=== PATIENT | female | born 1980 | race Hispanic/Latino ===

== ENCOUNTER 2018-03-04 12:26 | Emergency (ER) | payer OTHER ==
--- OUTSIDE RECORDS SUMMARY | 2018-03-04 12:27 | XMS REPORT ---
:1980 Author Organization eClinicalWorks Care Team Providers Name Role Phone Yue Suggs Provider Role Unavailable Allergies, Adverse Reactions, Alerts Substance Reaction Event Type MORPHINE itching Drug Allergy Zoloft Info Not Available Drug Allergy Wellbutrin Info Not Available Drug Allergy Prozac Info Not Available Drug Allergy Paxil Info Not Available Drug Allergy Celexa Info Not Available Drug Allergy BusPIRone HCl Info Not Available Drug Allergy Problems Problem Type Condition Code Onset Dates Condition Status Problem Uncomplicated asthma, unspecified J45.909 Active asthma severity, unspecified whether persistent Problem Depression with anxiety F41.8 Active Problem Seasonal allergies J30.2 Active Problem Essential (primary) hypertension I10 Active Problem Edema, unspecified type R60.9 Active Problem Rheumatoid arthritis involving M06.9 Active multiple sites, unspecified rheumatoid factor presence Problem Irritable bowel syndrome with K58.0 Active diarrhea Problem GERD without esophagitis K21.9 Active Medications Medication Code Code Instructions Start End Status Dosage System Date Date Singulair [facility] 73963166918 10 MG Orally Active 1 tablet Once a day Fish Oil [facility] 56829313603 1000 MG Orally Active 1 capsule Once a day Vitamin D3 [facility] 11371003374 98431 UNIT Active 1 capsule Orally Brintellix ND 0 10 mg orally Active 1 tablet once a day Combivent [facility] [address]-66 20-100 MCG/ACT Active 2 puff Respimat Inhalation Four times a day Cymbalta [facility] [address]-84 20 MG Orally Active 1 capsule Once a day PredniSONE ND 83521349649 5 MG Orally Active 1 tablet Once a day Folic Acid ND 93623332504 1 MG Orally Active 1 tablet Once a day Remicade [facility] 45944507821 100 MG Active as directed Intravenous Results No Known Results Summary Purpose eClinicalWorks Submission
--- OUTSIDE RECORDS SUMMARY | 2018-03-04 12:27 | XMS REPORT ---
:1980 Author Organization eClinicalWorks Care Team Providers Name Role Phone Yue Suggs Provider Role Unavailable Allergies, Adverse Reactions, Alerts Substance Reaction Event Type MORPHINE itching Drug Allergy Zoloft Info Not Available Drug Allergy Wellbutrin Info Not Available Drug Allergy Paxil Info Not Available Drug Allergy Celexa Info Not Available Drug Allergy BusPIRone HCl Info Not Available Drug Allergy Problems Problem Type Condition Code Onset Dates Condition Status Problem PCOS (polycystic ovarian syndrome) E28.2 Active Problem Rheumatoid arthritis involving M06.9 Active multiple sites, unspecified rheumatoid factor presence Problem Uncomplicated asthma, unspecified J45.909 Active asthma severity, unspecified whether persistent Problem Essential (primary) hypertension I10 Active Problem Depression with anxiety F41.8 Active Problem Vaginal bleeding N93.9 Active Problem GERD without esophagitis K21.9 Active Problem Edema, unspecified type R60.9 Active Problem Seasonal allergies J30.2 Active Problem Irritable bowel syndrome with K58.0 Active diarrhea Assessment Rheumatoid arthritis involving M06.9 Active multiple sites, unspecified rheumatoid factor presence Assessment Essential (primary) hypertension I10 Active Assessment Depression with anxiety F41.8 Active Assessment Vaginal bleeding N93.9 Active Medications Medication Code Code Instructions Start End Status Dosage System Date Date Singulair [facility] 78033239252 10 MG Orally Active 1 tablet Once a day Brintellix [facility] 0 10 mg orally Active 1 tablet once a day Vitamin D3 [facility] 58213258312 87315 UNIT Active 1 capsule Orally Combivent [facility] [address]-27 20-100 MCG/ACT Active 2 puff Respimat Inhalation Four times a day Lisinopril [facility] 30879631984 20 MG Orally January 27, Active 1 tablet Once a day 2017 Prozac [facility] 67251377041 10 MG Orally Active 1 capsule Once a day in the morning Remicade [facility] 23880685272 100 MG Active as directed Intravenous Folic Acid [facility] 43971794181 1 MG Orally Active 1 tablet Once a day Fish Oil [facility] 61374632811 1000 MG Orally Active 1 capsule Once a day Librium ND 0 BID Active 20 mg Orencia [facility] 39771703214 250 MG Active as directed Intravenous PredniSONE [facility] 72509964670 5 MG Orally Active 1 tablet Once a day Cymbalta [facility] [address]-06 20 MG Orally Active 1 capsule Once a day Symbicort [facility] 02681817306 160-4.5 MCG/ACT Active 2 puffs Inhalation Twice a day Results No Known Results Summary Purpose eClinicalWorks Submission
--- OUTSIDE RECORDS SUMMARY | 2018-03-04 12:27 | XMS REPORT ---
[...] J45.909 Active asthma severity, unspecified whether persistent Assessment Tachycardia R00.0 Active Assessment Essential (primary) hypertension I10 Active Problem Essential (primary) hypertension I10 Active Problem Depression with anxiety F41.8 Active Problem Vaginal bleeding N93.9 Active Problem GERD without esophagitis K21.9 Active Problem Edema, unspecified type R60.9 Active Problem Seasonal allergies J30.2 Active Problem Irritable bowel syndrome with K58.0 Active diarrhea Medications Medication Code Code Instructions Start End Status Dosage System Date Date Vitamin D3 [facility] 84787466847 01097 UNIT Active 1 capsule Orally Fish Oil [facility] 43823615507 1000 MG Orally Active 1 capsule Once a day Lisinopril ND 68350868325 20 MG Orally January 27, Active 1 tablet Once a day [address] [facility] 13230834032 250 MG Active as directed Intravenous Singulair [facility] 47950545765 10 MG Orally Active 1 tablet Once a day Symbicort [facility] 54790795308 160-4.5 MCG/ACT Active 2 puffs Inhalation Twice a day Cymbalta [facility] 38087293751 20 MG Orally Active 1 capsule Once a day Librium NDC 0 BID Active 20 mg Metoprolol ND 67508604326 25 MG Orally Feb 10, Active 1 tablet Succinate ER Once a day [address] [facility] 56201388304 10 MG Orally Active 1 capsule Once a day in the morning PredniSONE ND 43753568392 5 MG Orally Once Active 1 tablet a day Folic Acid [facility] 05406695016 1 MG Orally Once Active 1 tablet a day Results No Known Results Summary Purpose eClinicalWorks Submission
--- OUTSIDE RECORDS SUMMARY | 2018-03-04 12:27 | XMS REPORT ---
:1980 Author Organization eClinicalWorks Care Team Providers Name Role Phone Yue Suggs Provider Role Unavailable Allergies No Known Allergies Problems Problem Type Condition Code Onset Dates [...] bowel syndrome with K58.0 Active diarrhea Medications No Known Medications Results No Known Results Summary Purpose eClinicalWorks Submission
[2018-03-04] MEDS ORDERED: FENTANYL CITR 100 MCG/2 ML ONE ×3 (13:03→17:13)
--- NOTE | 2018-03-04 13:56 | RAD REPORT ---
EXAM DESCRIPTION: RAD - Knee Right 3 View - 03/04/2018 1:43 pm CLINICAL HISTORY: Fall, leg pain COMPARISON: None. FINDINGS: Large gross fracture deformity is seen at the distal femoral diaphyseal metaphyseal juncti on. There is 1 full shaft width posterior displacement of the distal fracture fragment and 4 cm of ov erlap of the fracture fragments. Fracture is comminuted. Femoral condyles are intact. No tibia or fib jennifer fractures seen. Patella maintains normal positioning to the displaced distal fracture fragment. D egenerative changes present at the knee joint. Edema and contusion changes are present in the surroun ding soft tissues. IMPRESSION: Comminuted distal femur fracture at the diaphyseal metaphyseal junction. There is 1 full shaft width posterior displacement and 4 cm of overlap of the fracture fragments.
[2018-03-04 14:32] LABS: Absolute Lymphocytes (CBC) 1.3 K/uL (0.7-4.9); Absolute Monocytes 0.5 K/uL (0.1-1.3); Absolute Neutrophil 5.1 K/uL (1.8-8.0); Basophils % 1.1 % (0-1.3); Eosinophils % 0.5 % (0-4.4); Hematocrit 34.6 % (36.0-45.0); Lymphocytes % 18.9 % (15.3-44.8); MCV 85.6 fL (80-100); MPV 9.6 fL (7.6-11.3); Monocytes % 6.9 % (3.3-12.3); RBC Red Blood Cell Count 4.03 M/uL (3.86-4.86)
[2018-03-04] MEDS ORDERED: DIAZEPAM 2 MG TABLET ONE (14:46)
[2018-03-04 14:49] LABS: BUN Blood Urea Nitrogen 5 mg/dL (7-18); Bicarbonate 26 mmol/L (21-32); Glucose Level 105 mg/dL (74-106); Potassium 3.6 mmol/L (3.5-5.1); Sodium Level 141 mmol/L (136-145)
[2018-03-04 15:18] LABS: Anisocytosis 1+; Blood Morphology Comment NOTED (NOT SEEN); Platelet Estimate ADEQ; Urine White Blood Cell Casts OK
--- NOTE | 2018-03-04 16:06 | EDPHYS ---
Physician Documentation [facility] Name: Yvette Nieto Age: 37 yrs Sex: Female : 1980 Arrival Date: 03/04/2018 Time: 12:29 Bed 7 Private MD: ED Physician Oskar Lee HPI: 03/04 12:47 This 37 yrs old Female presents to ER via EMS with complaints of Fall Injury. snw 12:47 Details of fall: The patient fell from an upright position, while standing. Onset: The snw symptoms/episode began/occurred suddenly, just prior to arrival. Associated injuries: The patient sustained right knee, painful injury. 12:48 Severity of symptoms: At their worst the symptoms were moderate. The patient has snw experienced similar episodes in the past. The patient has been recently seen by a physician: a special officer, a revenue accounting manager. 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 - Social history:: Smoking status: Patient/guardian denies using tobacco. - Ebola Screening: : Patient negative for fever greater than or equal to 101.5 degrees Fahrenheit, and additional compatible Ebola Virus Disease symptoms Patient denies exposure to infectious person Patient denies travel to an Ebola-affected area in the 21 days before illness onset No symptoms or risks identified at this time. ROS: 12:47 Constitutional: Negative for fever, chills, and weight loss, Eyes: Negative for injury, snw pain, redness, and discharge, ENT: Negative for injury, pain, and discharge, Neck: Negative for injury, pain, and swelling, Cardiovascular: Negative for chest pain, palpitations, and edema, Respiratory: Negative for shortness of breath, cough, wheezing, and pleuritic chest pain, Abdomen/GI: Negative for abdominal pain, nausea, vomiting, diarrhea, and constipation, Back: Negative for injury and pain, : Negative for injury, bleeding, discharge, and swelling, Skin: Negative for injury, rash, and discoloration, Neuro: Negative for headache, weakness, numbness, tingling, and seizure. 12:47 MS/extremity: Positive for injury or acute deformity, contusion, pain, of the right knee. Exam: 12:45 Head/Face: Normocephalic, atraumatic. Eyes: Pupils equal round and reactive to light, snw extra-ocular motions intact. Lids and lashes normal. Conjunctiva and sclera are non-icteric and not injected. Cornea within normal limits. Periorbital areas with no swelling, redness, or edema. ENT: Nares patent. No nasal discharge, no septal abnormalities noted. Tympanic membranes are normal and external auditory canals are clear. Oropharynx with no redness, swelling, or masses, exudates, or evidence of obstruction, uvula midline. Mucous membranes moist. Neck: Trachea midline, no thyromegaly or masses palpated, and no cervical lymphadenopathy. Supple, full range of motion without nuchal rigidity, or vertebral point tenderness. No Meningismus. Chest/axilla: Normal chest wall appearance and motion. Nontender with no deformity. No lesions are appreciated. 12:45 Respiratory: Lungs have equal breath sounds bilaterally, clear to auscultation and percussion. No rales, rhonchi or wheezes noted. No increased work of breathing, no retractions or nasal flaring. Abdomen/GI: Soft, non-tender, with normal bowel sounds. No distension or tympany. No guarding or rebound. No evidence of tenderness throughout. Back: No spinal tenderness. No costovertebral tenderness. Full range of motion. Neuro: Awake and alert, GCS 15, oriented to person, place, time, and situation. Cranial nerves II-XII grossly intact. Motor strength 5/5 in all extremities. Sensory grossly intact. Cerebellar exam normal. Normal gait. 12:45 Constitutional: The patient appears alert, awake, anxious, obese. 12:45 Cardiovascular: Rate: tachycardic, Rhythm: regular, Heart sounds: normal. 12:45 Skin: Appearance: normal except for affected area, injury, abrasion(s), small abrasion noted, of the right lateral knee, contusion(s), that are superficial, of the right knee. 12:45 Psych: Behavior/mood is anxious, Oriented to person, place, time. Vital Signs: 12:29 BP 139 / 91; Pulse 108; Resp 21; Temp 98.5; Pulse Ox 97% on R/A; Weight 137.89 kg; aj Height 5 ft. 7 in. (170.18 cm); Pain 10/10; 13:51 BP 129 / 78; Pulse 107; Resp 20; Pulse Ox 99% ; aj 14:35 BP 114 / 65; Pulse 100; Resp 16; Pulse Ox 97% on R/A; aj 15:18 BP 118 / 72; Pulse 104; Resp 15; Pulse Ox 98% on R/A; aj 15:45 BP 114 / 70; Pulse 105; Resp 16; Pulse Ox 97% on R/A; aj 17:15 BP 104 / 67; Pulse 101; Resp 18; Pulse Ox 97% on R/A; aj 12:29 Body Mass Index 47.61 (137.89 kg, 170.18 cm) aj Burnet Coma Score: 12:29 Eye Response: spontaneous(4). Verbal Response: oriented(5). Motor Response: obeys aj commands(6). Total: 15. Trauma Score (Adult): 12:29 Eye Response: spontaneous(1); Verbal Response: oriented(1); Motor Response: obeys aj commands(2); Systolic BP: > 89 mm Hg(4); Respiratory Rate: 10 to 29 per min(4); Burnet Score: 15; Trauma Score: 12 MDM: 12:39 Patient medically screened. snw 12:50 Data reviewed: vital signs, nurses notes. Data interpreted: Pulse oximetry: on room air snw is 97 %. Interpretation: normal. Counseling: I had a detailed discussion with the patient and/or guardian regarding: the historical points, exam findings, and any diagnostic results supporting the discharge/admit diagnosis, the presence of at least one elevated blood pressure reading (>120/80) during this emergency department visit, radiology results, the need for outpatient follow up, to return to the emergency department if symptoms worsen or persist or if there are any questions or concerns that arise at home. Special discussion: Based on the history and exam findings, there is no indication for further emergent testing or inpatient evaluation. I discussed with the patient/guardian the need to see the primary care provider for further evaluation of the symptoms. 15:00 Awaiting: Call from Pt's orthopedic at [facility] - Dr. Cabezas. snw 15:29 Response to treatment: the patient's symptoms have markedly improved after treatment. snw 15:33 Physician consultation: Dr. Allan was called at 15:33, was contacted at 15:33, snw regarding regarding transfer, to [facility]. patient's condition, OK to consult. Will admit to Hospitalist Dr. Andrade. 16:02 Physician consultation: Dr. Andrade was called at 16:03, was contacted at 16:03, snw regarding regarding transfer, to [facility]. Both [facility] kindly accept pt in transfer. 16:05 ED course: Remains neurovascularly intact, pain well controlled. VSS. sn 03/04 14:11 Order name: CBC with Diff; Complete Time: 15:26 03/04 14:11 Order name: Basic Metabolic Panel; Complete Time: 14:51 03/04 14:11 Order name: Type And Screen; Complete Time: 15:40 03/04 14:17 Order name: HCG-Quantitative; Complete Time: 14:58 03/04 14:44 Order name: CBC Smear Scan; Complete Time: 15:26 EDOH 03/04 15:38 Order name: ABO/RH no charge; Complete Time: 15:40 EDOH 03/04 12:45 Order name: Knee Right 3 View XRAY; Complete Time: 13:58 [facility] 03/04 14:51 Order name: NPO; Complete Time: 15:18 [facility] 03/04 14:51 Order name: Long Leg Splint: Posterior w/ Stirrup: no stirrup; Complete Time: 15:18 snw Administered Medications: 13:00 Drug: fentaNYL (PF) 50 mcg Route: IVP; Site: right antecubital; aj 14:10 Follow up: Response: Pain is decreased aj 13:16 CANCELLED (route changed): fentaNYL (PF) 50 mcg IM once aj 13:57 Drug: fentaNYL (PF) 50 mcg Route: IVP; Site: right antecubital; aj 14:11 Follow up: Response: Pain is decreased aj 14:46 Drug: Valium 2 mg Route: PO; aj 17:14 Follow up: Response: Pain is decreased aj 14:47 Drug: fentaNYL (PF) 25 mcg Route: IVP; Site: right antecubital; aj 17:14 Follow up: Response: Pain is decreased aj 17:11 Drug: fentaNYL (PF) 50 mcg Route: IVP; Site: right antecubital; aj 17:14 Follow up: Response: Medication administered at discharge. aj Disposition: 03/04/18 16:05 Transfer ordered to [facility]. Diagnosis is Displaced comminuted fracture of shaft of right femur - distal. - Reason for transfer: Patient request. - Accepting physician is Dr. Andrade. - Condition is Stable. - Problem is new. - Symptoms are unchanged. Addendum: 03/06/2018 08:09 Co-signature as Attending Physician, Oskar Lee MD I agree with the assessment and w a plan of care. Signatures: Dispatcher [employer] Chely Burt, Jamia Cordoba RN, BENEFITS ADVISOR-C BENEFITS ADVISOR-Csnw Oskar Lee MD MD wa Corrections: (The following items were deleted from the chart) 03/04 13:16 12:45 fentaNYL (PF) 50 mcg IM once ordered. snw aj 13:30 12:40 Allergies: No Known Allergies; aj aj 17:19 16:05 03/04/2018 16:05 Transfer ordered to [facility]. Diagnosis is aj Displaced comminuted fracture of shaft of right femur - distal. Reason for transfer: Patient request. Accepting physician is Dr. Andrade. Condition is Stable. Problem is new. Symptoms are unchanged. snw
--- NOTE | 2018-03-04 16:06 | ER ---
Nurse's Notes [facility] Name: Yvette Nieto Age: 37 yrs Sex: Female : 1980 Arrival Date: 03/04/2018 Time: 12:29 Bed 7 Private MD: Diagnosis: Displaced comminuted fracture of shaft of right femur-distal Presentation: 03/04 12:29 Presenting complaint: Patient states: Right knee pain after fall from standing when aj patient became dizzy. Denies syncope. Swelling noted. Care prior to arrival: IV initiated. 20 GA, in the right antecubital area. Mechanism of Injury: Fall from standing position. Trauma event details: Injury occurred in the [facility], Injury occurred: at home. Injury occurred: March 04, 2018 Injury occurred at: 12:00. 12:29 Acuity: SANDIE 3 aj 12:29 Method Of Arrival: EMS: [facility] 12:34 Transition of care: patient was not received from another setting of care. Onset of aj symptoms was March 04, 2018. Risk Assessment: Do you want to hurt yourself or someone else? Patient reports no desire to harm self or others. Initial Sepsis Screen: Does the patient meet any 2 criteria? HR > 90 bpm. Does the patient have a suspected source of infection? No. Patient's initial sepsis screen is negative. REGIONAL DIRECTOR OF ADMISSIONS: 12:40 LMP N/A - Irregular menses aj Trauma Activation: Not Applicable Physician: ED Physician; Name: ; Notified At: ; Arrived At: Physician: General Surgeon; Name: ; Notified At: ; Arrived At: Physician: Radiology; Name: ; Notified At: ; Arrived At: Physician: Respiratory; Name: ; Notified At: ; Arrived At: Physician: Lab; Name: ; Notified At: ; Arrived At: Historical: - Allergies: 13:30 Morphine (Itching); aj - Home Meds: 12:40 Lisinopril Oral [Active]; Metformin Oral [Active]; prednisone Oral [Active]; Orencia aj 125 mg/mL subcutaneous syrg 1 mL once wkly [Active]; - PMHx: 12:40 Rheumatoid Arthritis; Hypertension; Tachycardia; aj - PSHx: 12:40 Knee surgery; aj - Immunization history: Last tetanus immunization: - up to date. - Social history:: Smoking status: Patient/guardian denies using tobacco. - Ebola Screening: : Patient negative for fever greater than or equal to 101.5 degrees Fahrenheit, and additional compatible Ebola Virus Disease symptoms Patient denies exposure to infectious person Patient denies travel to an Ebola-affected area in the 21 days before illness onset No symptoms or risks identified at this time. Screenin:29 Abuse screen: Denies threats or abuse. Denies injuries from another. Tuberculosis aj screening: No symptoms or risk factors identified. 17:15 Nutritional screening: No deficits noted. Fall Risk None identified. aj Primary Survey: 12:29 Breathing/Chest: Respiratory pattern: regular, Respiratory effort: spontaneous, aj unlabored, Breath sounds: clear, bilaterally. Chest inspection: symmetrical rise and fall of the chest. Circulation: Skin color: pink, Skin temperature: warm, dry. Disability Alert. 13:19 Reassessment Airway Airway Patent Breathing/Chest Respiratory pattern Regular aj Respiratory effort Spontaneous Unlabored Circulation Pulses Palpable Color [place] Disability Alert. Assessment: 12:29 General: Appears in no apparent distress. uncomfortable, obese, Behavior is aj cooperative, crying. Pain: Complains of pain in right knee. Neuro: Level of Consciousness is awake, alert, obeys commands, Oriented to person, place, time, situation, Appropriate for age. Respiratory: Airway is patent Respiratory effort is even, unlabored, Respiratory pattern is regular, symmetrical. Derm: Skin is intact, is healthy with good turgor, Skin is pink, warm \T\ dry. normal. Musculoskeletal: Circulation, motion, and sensation intact. Swelling present in right knee Reports pain in right knee. 13:31 Reassessment: Patient appears in no apparent distress at this time. No changes from aj previously documented assessment. Patient and/or family updated on plan of care and expected duration. Pain level reassessed. Patient asleep in bed. Respirations are even and unlabored. 13:59 Cardiovascular: Pulses are palpable in right posterior tibial artery and right dorsalis aj pedis artery. 17:15 Reassessment: Patient appears in no apparent distress at this time. No changes from aj previously documented assessment. Patient and/or family updated on plan of care and expected duration. Pain level reassessed. Cardiovascular: Pulses are palpable in right dorsalis pedis artery. Vital Signs: 12:29 BP 139 / 91; Pulse 108; Resp 21; Temp 98.5; Pulse Ox 97% on R/A; Weight 137.89 kg; aj Height 5 ft. 7 in. (170.18 cm); Pain 10/10; 13:51 BP 129 / 78; Pulse 107; Resp 20; Pulse Ox 99% ; aj 14:35 BP 114 / 65; Pulse 100; Resp 16; Pulse Ox 97% on R/A; aj 15:18 BP 118 / 72; Pulse 104; Resp 15; Pulse Ox 98% on R/A; aj 15:45 BP 114 / 70; Pulse 105; Resp 16; Pulse Ox 97% on R/A; aj 17:15 BP 104 / 67; Pulse 101; Resp 18; Pulse Ox 97% on R/A; aj 12:29 Body Mass Index 47.61 (137.89 kg, 170.18 cm) aj [place] Coma Score: 12:29 Eye Response: spontaneous(4). Verbal Response: oriented(5). Motor Response: obeys aj commands(6). Total: 15. Trauma Score (Adult): 12:29 Eye Response: spontaneous(1); Verbal Response: oriented(1); Motor Response: obeys aj commands(2); Systolic BP: > 89 mm Hg(4); Respiratory Rate: 10 to 29 per min(4); Simin Score: 15; Trauma Score: 12 ED Course: 12:29 Patient arrived in ED. aj 12:30 Thermoregulation: warm blanket given to patient. aj 12:31 Triage completed. aj 12:32 Jamia Bey FNP-C is PHCP. snw 12:32 Oskar Lee MD is Attending Physician. snw 12:40 Arm band placed on right wrist. Patient placed in an exam room, on a stretcher. aj 12:57 Chely Rosales, MIKE is Primary Nurse. aj 13:31 Patient maintains SpO2 saturation greater than 95% on room air. aj 13:40 X-ray completed. Portable x-ray completed in exam room. Patient tolerated procedure mh1 well. 13:41 Knee Right 3 View XRAY In Process Unspecified. EDMS 14:07 initial contact with the office of patient's private ortho, Dr. Matty Cabezas. [phone]. 15:03 Second attempt to reach Dr. Cabezas. Informed that the nurse would check her messages mb4 and return SAPPHIRE. 15:06 Dr. Cabezas's PA returned call and stated that they would not accept patient because darío Cabezas is not the on-call; a trauma surgeon would have to accept the patient. 15:08 [facility] contacted to initiate transfer. mb4 15:19 Patient has correct armband on for positive identification. Placed in gown. Bed in low aj position. Call light in reach. Side rails up X2. Adult w/ patient. Pulse ox on. NIBP on. 15:19 Orthoglass splint: Posterior long leg splint applied on right leg. aj 15:20 Maintain EMS IV. Gauge \T\ site: 20 to right AC. IV is patent, is intact, with good blood aj return, Flushed right antecubital. 15:31 Lissett from [facility] called and connected the ortho surgeon to JANNET Bey. mb4 16:21 Pt. accepted by Gwendolyn White at 1600. Pt. accepted by [facility] at 1613. mb4 16:35 Report given to Minoo Kong RN [facility]. aj 17:15 No provider procedures requiring assistance completed. Patient transferred, IV remains aj in place. intact. Administered Medications: 13:00 Drug: fentaNYL (PF) 50 mcg Route: IVP; Site: right antecubital; aj 14:10 Follow up: Response: Pain is decreased aj 13:16 CANCELLED (route changed): fentaNYL (PF) 50 mcg IM once aj 13:57 Drug: fentaNYL (PF) 50 mcg Route: IVP; Site: right antecubital; aj 14:11 Follow up: Response: Pain is decreased aj 14:46 Drug: Valium 2 mg Route: PO; aj 17:14 Follow up: Response: Pain is decreased aj 14:47 Drug: fentaNYL (PF) 25 mcg Route: IVP; Site: right antecubital; aj 17:14 Follow up: Response: Pain is decreased aj 17:11 Drug: fentaNYL (PF) 50 mcg Route: IVP; Site: right antecubital; aj 17:14 Follow up: Response: Medication administered at discharge. aj Intake: 13:20 PO: 0ml; Total: 0ml. aj Outcome: 16:05 ER care complete, transfer ordered by . snthomas 17:15 Transferred by private ambulance to [facility], Transfer form completed. aj X-rays sent w/ patient. 17:15 Condition: good 17:15 Discharge instructions given to patient, EMS, Instructed on the need for transfer. 17:18 Patient's length of stay in the Emergency Department was greater than 2 hours. aj TransferPatient's length of stay extended due to 17:19 Patient left the ED. tricia Signatures: Dispatcher [employer] Chely Burt RN RN Jamia Rick, INDUSTRIAL RENDERER-C INDUSTRIAL RENDERER-Csnw Ale Crow [facility] Angela Esteves mb4 Corrections: (The following items were deleted from the chart) 13:30 12:40 Allergies: No Known Allergies; aj 14:11 14:07 initial contact with patient's private ortho, Dr. Matty Cabezas. mb4 mb4
== END 2018-03-04 17:19 | disposition short-term general hospital (02) ==
LOC: ER 12:26
PROC: 2W3LX1Z Immobilization of Right Lower Extremity using Splint (ICD-10-PCS; principal; 2018-03-04)
DX: S72.351A Displaced comminuted fracture of shaft of right femur, initial encounter for closed fracture (principal); W19.XXXA Unspecified fall, initial encounter; Y93.89 Activity, other specified; Y92.9 Unspecified place or not applicable; Z88.5 Allergy status to narcotic agent; I10 Essential (primary) hypertension
CPT/HCPCS: 36415; 80048; 84702; 85025; 86850; 86900; 86901; 96374; 99285; J3010

== ENCOUNTER 2018-05-14 01:29 | Emergency (ER) | payer OTHER ==
--- OUTSIDE RECORDS SUMMARY | 2018-05-14 01:31 | XMS REPORT ---
[...] End Status Dosage System Date Date Singulair [facility] 77637837770 10 MG Orally Active 1 tablet Once a day Brintellix [facility] 0 10 mg orally Active 1 tablet once a day Vitamin D3 [facility] 02650115641 33522 UNIT Active 1 capsule Orally Combivent [facility] [address]-41 20-100 MCG/ACT Active 2 puff Respimat Inhalation Four times a day Lisinopril [facility] 24680225038 20 MG Orally January 27, Active 1 tablet Once a day 2017 Prozac [facility] 60944251501 10 MG Orally Active 1 capsule Once a day in the morning Remicade [facility] 73064689625 100 MG Active as directed Intravenous Folic Acid [facility] 40289452653 1 MG Orally Active 1 tablet Once a day Fish Oil [facility] 92484889684 1000 MG Orally Active 1 capsule Once a day Librium ND 0 BID Active 20 mg Orencia [facility] 21740216912 250 MG Active as directed Intravenous PredniSONE [facility] 88117481677 5 MG Orally Active 1 tablet Once a day Cymbalta [facility] [address]-84 20 MG Orally Active 1 capsule Once a day Symbicort [facility] 84037197498 160-4.5 MCG/ACT Active 2 puffs Inhalation Twice a day Results No Known Results Summary Purpose eClinicalWorks Submission
--- OUTSIDE RECORDS SUMMARY | 2018-05-14 01:31 | XMS REPORT | Clinical Summary ---
:1980 Author Organization [facility] Address [address] [place] [address] Care Team Providers Name Role Phone Clem Chapin MD Primary Care Provider Allergies Active Allergy Reactions Severity Noted Date Comments Morphine High 03/04/2018 Current Medications Prescription Sig. Disp. Refills Start Date End Date Status lisinopril Take 20 mg by Active (PRINIVIL,ZESTRIL) 20 mouth daily. mg tablet metoprolol tartrate Take 25 mg by Active (LOPRESSOR) 25 mg mouth 2 (two) tablet times a day as needed. DULoxetine (CYMBALTA) Take 60 mg by Active 60 MG capsule mouth daily. predniSONE (DELTASONE) Take 10 mg by Active 10 mg tablet mouth daily. ibuprofen Take 800 mg Active (ADVIL,MOTRIN) 800 MG by mouth tablet every 6 (six) hours as needed for mild pain. budesonide-formoterol Inhale 2 Active (SYMBICORT) 160-4.5 puffs 2 (two) mcg/actuation inhaler times a day. FLUoxetine (PROzac) 20 Take 20 mg by Active MG capsule mouth daily. chlordiazePOXIDE Take 10 mg by Active (LIBRIUM) 10 MG mouth 2 (two) capsule times a day. clonAZEPAM (KlonoPIN) Take 0.25 mg Active 0.5 MG tablet by mouth 2 (two) times a day as needed (panic attack). multivitamin Take 1 tablet Active (THERAGRAN) tablet by mouth daily. methotrexate 2.5 MG Take 12.5 mg 03/05/2018 Discontinued tablet by mouth once 8 a week. abatacept/maltose Infuse into a Discontinued (ORENCIA, WITH venous 8 MALTOSE, IV) catheter every 30 (thirty) days. calcitonin, salmon, 1 spray (0.09 2.7 mL 0 03/11/2018 (MIACALCIN) 200 mL total) 8 unit/actuation nasal into each spray nostril daily for 30 days. calcium Take 1 tablet 60 tablet 0 03/10/2018 carbonate-vitamin D3 by mouth 2 8 500 mg-200 unit per (two) times a tablet day for 30 days. HYDROcodone-acetaminop Take 1-2 80 tablet 0 03/10/2018 hen (NORCO) 10-325 mg tablets by 8 per tablet mouth every 4 (four) hours as needed for moderate pain or severe pain for up to 14 days. Max Daily Amount: 9 tablets methocarbamol Take 1 tablet 40 tablet 0 03/10/2018 (ROBAXIN) 500 MG (500 mg 8 tablet total) by mouth every 6 (six) hours as needed for muscle spasms for up to 30 days. ergocalciferol Take 1 4 capsule 0 03/10/2018 (VITAMIN D2) 50,000 capsule 8 unit capsule (50,000 Units total) by mouth once a week for 30 days. aspirin (ECOTRIN) 325 Take 1 tablet 60 tablet 0 03/10/2018 MG enteric coated (325 mg 8 tablet total) by mouth 2 (two) times a day for 30 days. Then as directed by PCP Active Problems Problem Noted Date Femur fracture ([facility]) 03/04/2018 Supracondyl fx femur-closed, right, initial encounter ([facility]) 03/04/2018 Resolved Problems Problem Noted Date Resolved Date Hip fracture requiring operative repair, right, closed, 03/04/2018 03/06/2018 initial encounter ([facility]) Encounters Date Type Specialty Care Team Description 03/05/2018 Anesthesia Event Orthopedic Surgery Tere Nino MD 03/05/2018 Procedure Pass Orthopedic Surgery 03/05/2018 Surgery Orthopedic Surgery Forrest CastleF, KNEE/ DISTAL MD Melissa FEMUR 03/04/2018 - Hospital Encounter Orthopedic Surgery Felipe Andrade 03/10/2018 MD Melissa 03/04/2018 Intake Access N/A after 05/13/2017 Family History Medical History Relation Name Comments Arthritis Father Hyperlipidemia Father Arthritis Mother Diabetes Mother Thyroid cancer Mother Endometriosis Sister Relation Name Status Comments Father Alive Mother Alive Sister Alive Social History Tobacco Use Types Packs/Day Years Used Date Former Smoker Cigarettes 0.33 7 Quit: 2006 Smokeless Tobacco: Never Used Alcohol Use Drinks/Week oz/Week Comments Yes 1 Glasses of wine 1.2 occasionally 1 Shots of liquor Sex Assigned at Date Recorded Not on file Last Filed Vital Signs Vital Sign Reading Time Taken Blood Pressure 134/83 03/10/2018 3:47 PM CDT Pulse 102 03/10/2018 3:47 PM CDT Temperature 37.1 C (98.8 F) 03/10/2018 3:47 PM CDT Respiratory Rate 17 03/10/2018 3:47 PM CDT Oxygen Saturation 97% 03/10/2018 3:47 PM CDT Inhaled Oxygen Concentration - - Weight 137 kg (303 lb) 03/04/2018 10:37 PM CDT Height 170.2 cm (5' 7") 03/04/2018 10:37 PM CDT Body Mass Index 47.46 03/04/2018 10:37 PM CDT Plan of Treatment Health Maintenance Due Date Last Done Comments CERVICAL CANCER SCREENING 2000 INFLUENZA VACCINE 02/10/2018 Implants Implanted Type Area Food Quality Tester Device Expiration Model / Identifier Date Serial / Lot Ti Lcp(Tm) Distal Femur Plate 13 Holes/316mm-Right - [id number] IMPLANT Right: SYNTHES TRAUMA [id number] / Implanted: Qty: 1 on 03/05/2018 by Forrest Castle MD DEVICES Femur / Screw Bone Lkng Slf-Drl Ti 5x26mm - [id number] Orthopedic Right: SYNTHES TRAUMA [id number] / Implanted: Qty: 6 on 03/05/2018 by Forrest Castle MD Trauma Femur AND RECON / Implants Screw Bone Lkng Slf-Drl Ti 5x40mm - [id number] Orthopedic Right: SYNTHES TRAUMA [id number] 393 / Implanted: Qty: 1 on 03/05/2018 by Forrest Castle MD Trauma Femur AND RECON / Implants Screw Bone Lkng Slf-Drl Ti 5x55mm - [id number] Orthopedic Right: SYNTHES TRAUMA 422 394 / Implanted: Qty: 1 on 03/05/2018 by Forrest Castle MD Trauma Femur AND RECON / Implants Screw Bone Lkng Slf-Drl Ti 5x75mm - [id number] Orthopedic Right: SYNTHES TRAUMA 422 396 / Implanted: Qty: 4 on 03/05/2018 by Forrest Castle MD Trauma Femur AND RECON / Implants 4.5x68 Screw Screw SYNTHES TRAUMA [id number] / Implanted: Qty: 1 on 03/05/2018 by Forrest Castle MD / Immobilizer Knee Tripnl Dlx W/ Patl Strp Univ Canvas 24in - [id number] Surgical N/A: N/A DEROYAL [id number] / Implanted: Qty: 1 on 03/05/2018 by Forrest Castle MD Implants; IND[employer]ES / Expanders; Extenders; Surgical Wires 4.5x72 Screw SYNTHES TRAUMA [id number] / Implanted: Qty: 1 on 03/05/2018 by Forrest Castle MD / Explanted Type Area Food Quality Tester Device Expiration Model / Identifier Date Serial / Lot Wire K Thred Tip [id number] Ss - [id number] Surgical Right: SYNTHES TRAUMA [id number] / Explanted: Qty: 3 on 03/05/2018 Implants; Femur AND RECON / Expanders; Extenders; Surgical Wires Wire K Thred Tip [id number] Ss - [id number] Surgical Right: SYNTHES TRAUMA [id number] / Explanted: Qty: 2 on 03/05/2018 Implants; Femur AND RECON / Expanders; Extenders; Surgical Wires Wire K Thred [id number] - [id number] Temporary Right: SYNTHES TRAUMA [id number] / Implanted: 03/05/2018 (Quantity not on file) Fixation Pin Femur AND RECON / Explanted: 03/05/2018 (Quantity not on file) or Wire Procedures Procedure Name Priority Date/Time Associated Comments Diagnosis CBC HEMOGRAM Routine 03/08/2018 6:00 Results for this AM CDT procedure are in the results section. HC COMPLETE BLD COUNT Routine 03/07/2018 9:01 Results for this W/AUTO DIFF AM CDT procedure are in the results section. ZZESTIMATED GFR Routine 03/07/2018 3:55 Results for this AM CDT procedure are in the results section. BASIC METABOLIC PANEL Routine 03/07/2018 3:55 Results for this AM CDT procedure are in the results section. CBC WITH PLATELET AND Routine 03/07/2018 3:55 Results for this DIFFERENTIAL AM CDT procedure are in the results section. POC GLUCOSE Routine 03/06/2018 9:39 Results for this PM CDT procedure are in the results section. POC GLUCOSE Routine 03/06/2018 5:59 Results for this PM CDT procedure are in the results section. POC GLUCOSE Routine 03/06/2018 11:58 Results for this AM CDT procedure are in the results section. XR FEMUR 2 VW RIGHT Routine 03/06/2018 9:01 Results for this AM CDT procedure are in the results section. ZZESTIMATED GFR Routine 03/06/2018 4:20 Results for this AM CDT procedure are in the results section. BASIC METABOLIC PANEL Routine 03/06/2018 4:20 Results for this AM CDT procedure are in the results section. HC COMPLETE BLD COUNT Routine 03/06/2018 4:20 Results for this W/AUTO DIFF AM CDT procedure are in the results section. POC GLUCOSE Routine 03/05/2018 9:49 Results for this PM CDT procedure are in the results section. [place] > 1 HOUR Routine 03/05/2018 6:51 Results for this PM CDT procedure are in the results section. [place] AN ELECTIVE Routine 03/05/2018 5:17 ENDOTRACHEAL AIRWAY PM CDT Procedure Note - Carlos Alberto Coronado CRNA - 03/05/2018 5:17 PM CDT Airway Date/Time: 03/05/2018 5:17 PM Performed by: CARLOS ALBERTO CORONADO Authorized by: TERE NINO Location: OR Urgency: Elective Difficult Airway: No Preoxygenated with 100% O2: Yes C-spine Precautions Maintained Throughout: Yes Final Airway Type: Endotracheal airway Final Endotracheal Airway: ETT Cuffed: Yes Technique Used: Direct laryngoscopy Devices/Methods Used in Placement: Intubating stylet Insertion Site: Oral Blade Type: Reid Laryngoscope Blade/Videolaryngoscope Blade Size: 2 ETT Size (mm): 7.0 Cuff at minimum occlusion pressure: Yes Measured from: Teeth ETT to Teeth (cm): 21 Placement Verified by: CO2 detection, direct visualization and equal breath sounds Laryngoscopic view: Grade I - full view of glottis Rapid Sequence Induction (RSI): No Modified RSI: No Number of Attempts at Approach: 1 Easy. ORIF, KNEE 03/05/2018 3:30 PM RIGHT KNEE CDT FRACTURE PREPARE RBC Routine 03/05/2018 12:48 AM Results for this CDT procedure are in the results section. ZZESTIMATED GFR Routine 03/05/2018 12:48 AM Results for this CDT procedure are in the results section. MAGNESIUM LEVEL Routine 03/05/2018 12:48 AM Results for this CDT procedure are in the results section. PHOSPHORUS LEVEL Routine 03/05/2018 12:48 AM Results for this CDT procedure are in the results section. BASIC METABOLIC PANEL Routine 03/05/2018 12:48 AM Results for this CDT procedure are in the results section. PARTIAL THROMBOPLASTIN Routine 03/05/2018 12:48 AM Results for this TIME (PTT) CDT procedure are in the results section. PROTHROMBIN TIME WITH Routine 03/05/2018 12:48 AM Results for this INR CDT procedure are in the results section. HC COMPLETE BLD COUNT Routine 03/05/2018 12:48 AM Results for this W/AUTO DIFF CDT procedure are in the results section. TYPE AND SCREEN Routine 03/05/2018 12:48 AM Results for this CDT procedure are in the results section. CT LOWER EXTREMITY WO STAT 03/04/2018 8:41 PM Results for this CONTRAST RIGHT CDT procedure are in the results section. after 05/13/2017 Results CBC hemogram (03/08/2018 6:00 AM) WBC 7.16 4.50 - 11.00 k/uL [facility] DEPARTMENT OF PATHOLOGY AND GENOMIC MEDICINE RBC 2.70 (L) 4.20 - 5.50 m/uL [facility] DEPARTMENT OF PATHOLOGY AND GENOMIC MEDICINE HGB 7.7 (L) 12.0 - 16.0 g/dL [facility] DEPARTMENT OF PATHOLOGY AND GENOMIC MEDICINE HCT 24.8 (L) 37.0 - 47.0 % [facility] DEPARTMENT OF PATHOLOGY AND GENOMIC MEDICINE MCV 91.9 82.0 - 100.0 fL [facility] DEPARTMENT OF PATHOLOGY AND GENOMIC MEDICINE MCH 28.5 27.0 - 34.0 pg [facility] DEPARTMENT OF PATHOLOGY AND GENOMIC MEDICINE MCHC 31.0 31.0 - 37.0 g/dL [facility] DEPARTMENT OF PATHOLOGY AND GENOMIC MEDICINE RDW - SD 61.3 (H) 37.0 - 55.0 fL [facility] DEPARTMENT OF PATHOLOGY AND GENOMIC MEDICINE MPV 12.0 8.8 - 13.2 fL [facility] DEPARTMENT OF PATHOLOGY AND GENOMIC MEDICINE Platelet count 201 150 - 400 k/uL [facility] DEPARTMENT OF PATHOLOGY AND GENOMIC MEDICINE Nucleated RBC 0.30 /100 WBC [facility] DEPARTMENT OF PATHOLOGY AND GENOMIC MEDICINE Specimen Blood Performing Organization Address City/State/[facility] Centercomn Phone Number [facility] DEPARTMENT OF PATHOLOGY AND [place] [address] GENOMIC MEDICINE CBC with platelet and differential (03/07/2018 9:01 AM)Only the most recent of4 resultswithin the time period is included. WBC 7.14 4.50 - 11.00 k/uL [facility] DEPARTMENT OF PATHOLOGY AND GENOMIC MEDICINE RBC 2.74 (L) 4.20 - 5.50 m/uL [facility] DEPARTMENT OF PATHOLOGY AND GENOMIC MEDICINE HGB 7.7 (L) 12.0 - 16.0 g/dL [facility] DEPARTMENT OF PATHOLOGY AND GENOMIC MEDICINE HCT 25.0 (L) 37.0 - 47.0 % [facility] DEPARTMENT OF PATHOLOGY AND GENOMIC MEDICINE MCV 91.2 82.0 - 100.0 fL [facility] DEPARTMENT OF PATHOLOGY AND GENOMIC MEDICINE MCH 28.1 27.0 - 34.0 pg [facility] DEPARTMENT OF PATHOLOGY AND GENOMIC MEDICINE MCHC 30.8 (L) 31.0 - 37.0 g/dL [facility] DEPARTMENT OF PATHOLOGY AND GENOMIC MEDICINE RDW - SD 62.3 (H) 37.0 - 55.0 fL [facility] DEPARTMENT OF PATHOLOGY AND GENOMIC MEDICINE MPV 11.7 8.8 - 13.2 fL [facility] DEPARTMENT OF PATHOLOGY AND GENOMIC MEDICINE Platelet count 178 150 - 400 k/uL [facility] DEPARTMENT OF PATHOLOGY AND GENOMIC MEDICINE Nucleated RBC 0.30 /100 WBC [facility] DEPARTMENT OF PATHOLOGY AND GENOMIC MEDICINE Neutrophils 61.7 39.0 - 69.0 % [facility] DEPARTMENT OF PATHOLOGY AND GENOMIC MEDICINE Lymphocytes 26.8 25.0 - 45.0 % [facility] DEPARTMENT OF PATHOLOGY AND GENOMIC MEDICINE Monocytes 9.9 0.0 - 10.0 % [facility] DEPARTMENT OF PATHOLOGY AND GENOMIC MEDICINE Eosinophils 0.6 0.0 - 5.0 % [facility] DEPARTMENT OF PATHOLOGY AND GENOMIC MEDICINE Basophils 0.4 0.0 - 1.0 % [facility] DEPARTMENT OF PATHOLOGY AND GENOMIC MEDICINE Immature granulocytes 0.6Comment: 0.0 - 1.0 % [facility] DEPARTMENT OF "Immature PATHOLOGY AND GENOMIC granulocytes" MEDICINE (promyelocytes, myelocytes, metamyelocytes) Specimen Blood Performing Organization Address City/[facility]/Zipcode Phone Number [facility] DEPARTMENT OF PATHOLOGY AND [address] [place] [id number] [employer] [facility] Estimated GFR (03/07/2018 3:55 AM)Only the most recent of3 resultswithin the time period is included. GFR Non Af Amer >90 mL/min/1.73 m2 [facility] DEPARTMENT OF PATHOLOGY AND GENOMIC MEDICINE GFR Af Amer >90 mL/min/1.73 m2 [facility] DEPARTMENT OF Comment: PATHOLOGY AND GENOMIC Chronic kidney disease: <60 mL/min/1.73m2 MEDICINE Kidney failure: <15 mL/min/1.73m2 The estimated GFR is calculated from the IDMS-traceable Modification of Diet in Renal Disease Equation. The accuracy of the calculation is poor when the creatinine is normal. Calculated values >90 mL/min/1.73m2 are not reported. This equation has not been validated in children (<18 years), women, the elderly (>70 years), or ethnic groups other than Caucasians and Americans. Specimen Plasma specimen Performing Organization Address [facility] Cent[facility]ode Phone Number [facility] DEPARTMENT OF PATHOLOGY AND [address] [place], [place] [id number] [facility] Basic metabolic panel (03/07/2018 3:55 AM)Only the most recent of3 resultswithin the time period is included. Sodium 139 135 - 148 mEq/L [facility] DEPARTMENT OF PATHOLOGY AND GENOMIC MEDICINE Potassium 3.5 3.5 - 5.0 mEq/L [facility] DEPARTMENT OF PATHOLOGY AND GENOMIC MEDICINE Chloride 99 98 - 112 mEq/L [facility] DEPARTMENT OF PATHOLOGY AND GENOMIC MEDICINE CO2 27 24 - 31 mEq/L [facility] DEPARTMENT OF PATHOLOGY AND GENOMIC MEDICINE Anion gap 13@ANIO 7 - 15 mEq/L [facility] DEPARTMENT OF PATHOLOGY AND GENOMIC MEDICINE BUN 5 (L) 6 - 20 mg/dL [facility] DEPARTMENT OF PATHOLOGY AND GENOMIC MEDICINE Creatinine 0.6 0.5 - 0.9 mg/dL [facility] DEPARTMENT OF PATHOLOGY AND GENOMIC MEDICINE Glucose 81 65 - 99 mg/dL [facility] DEPARTMENT OF PATHOLOGY AND GENOMIC MEDICINE Calcium 8.5 8.3 - 10.2 mg/dL [facility] DEPARTMENT OF PATHOLOGY AND GENOMIC MEDICINE Specimen Plasma specimen Performing Organization Address City/[facility]/Zipcode Phone Number [facility] DEPARTMENT OF PATHOLOGY AND [address] [place], [place] [phone] [employer] [facility] POC glucose (03/06/2018 9:39 PM)Only the most recent of4 resultswithin the time period is included. POC glucose 109 (H) 65 - 99 mg/dL [facility] DEPARTMENT OF PATHOLOGY AND Comment: GENOMIC MEDICINE [facility] Notified RN Meter ID: [id number] Lotus Notes Administrator: Betsey Gonzalez Performing Organization Address City/[facility] Centercode Phone Number [facility] DEPARTMENT OF PATHOLOGY AND [address] [place] [address] [facility] XR Femur 2 Vw Right (03/06/2018 9:01 AM) Narrative Performed At EXAMINATION:XR FEMUR 2 VW RIGHT [facility] CLINICAL HISTORY:Fracturefemur, Post operative COMPARISON:None. IMPRESSION: 1.Postsurgical changes associated with open reduction and internal fixation of a comminuted distal right femur fracture. There is a sideplate with several screws along the lateral aspect of the distal right femur. 2.A small 4 mm gap is present between the distal aspect of the plate and the cortex of the lateral femoral condyle. There is a 6 mm gap between the proximal sideplate and the femoral cortex at the level of the first screw 3.Metallic density projected over the proximal right femur likely relates to sequela of prior W [facility]-[id number] Procedure Note Interface, Radiology Results Incoming - 03/06/2018 9:15 AM CDT EXAMINATION: XR FEMUR 2 VW RIGHT CLINICAL HISTORY: Fracture femur, Post operative COMPARISON: None. IMPRESSION: 1. Postsurgical changes associated with open reduction and internal fixation of a comminuted distal right femur fracture. There is a sideplate with several screws along the lateral aspect of the distal right femur. 2. A small 4 mm gap is present between the distal aspect of the plate and the cortex of the lateral femoral condyle. There is a 6 mm gap between the proximal sideplate and the femoral cortex at the level of the first screw 3. Metallic density projected over the proximal right femur likely relates to sequela of prior W [facility]-[id number] Performing Organization Address City/[facility]/Zipcode Phone Number [facility] [address] [place] [address] [place] > I Hour (03/05/2018 6:51 PM) Narrative Performed At EXAMINATION:[place] 1 HOUR [facility] C-arm fluoroscopy was requested in OR. [facility] OR 19 ROOM: 7 PROCEDURE: RIGHT FEMUR ORIF START TIME: 1600 END TIME: 1850 FLUORO TIME: 1 MIN 53 SEC DOSAGE: 20.91 mGy TECH: AC IMPRESSION: Separate operative report will be issued by the physician performing the procedure. [id number] Procedure Note Hm Interface, Radiology Results Incoming - 03/05/2018 10:05 PM CDT EXAMINATION: OR [place] 1 HOUR C-arm fluoroscopy was requested in OR. [facility] OR 19 ROOM: 7 PROCEDURE: RIGHT FEMUR ORIF START TIME: 1600 END TIME: 1850 FLUORO TIME: 1 MIN 53 SEC DOSAGE: 20.91 mGy TECH: AC IMPRESSION: Separate operative report will be issued by the physician performing the procedure. [id number] Performing Organization Address [facility] Centercode Phone Number [facility] [address] [place] [phone] Partial thromboplastin time, activated (03/05/2018 12:48 AM) PTT 24.6 23.0 - 36.0 sec [facility] DEPARTMENT OF PATHOLOGY Comment: AND GENOMIC MEDICINE PTT therapeutic range for unfractionated heparin is 61.0-112.0 seconds which corresponds to Anti-Xa 0.3-0.7 U/ml. Specimen Blood Performing Organization Address [facility] Centercode Phone Number [facility] DEPARTMENT OF PATHOLOGY AND [address] [place] [phone] [employer] Prothrombin time with INR (03/05/2018 12:48 AM) Prothrombin time 14.8 12.0 - 15.0 sec [facility] DEPARTMENT OF PATHOLOGY AND GENOMIC MEDICINE INR 1.1 [facility] DEPARTMENT OF Comment: PATHOLOGY AND GENOMIC The International Normalized Ratio (INR) is a therapeutic MEDICINE monitoring tool for patients who are stable on oral anticoagulant therapy. An INR of 2.0-3.0 is suggested for deep vein thrombosis/pulmonary embolism. Specimen Blood Performing Organization Address [facility] Centercode Phone Number [facility] DEPARTMENT OF PATHOLOGY AND [address] [place] [id number] [employer]-dor Prepare RBC (03/05/2018 12:48 AM) Product name Red Blood Cells -1, [facility] DEPARTMENT OF Leukored PATHOLOGY AND GENOMIC MEDICINE Unit number [id number] [facility] DEPARTMENT OF PATHOLOGY AND GENOMIC MEDICINE Product code [id number] [facility] DEPARTMENT OF PATHOLOGY AND GENOMIC MEDICINE Dispense status Returned to not [facility] DEPARTMENT OF transfused PATHOLOGY AND GENOMIC MEDICINE Blood expiration date [facility] DEPARTMENT OF PATHOLOGY AND GENOMIC MEDICINE Blood type code 6200 [facility] DEPARTMENT OF PATHOLOGY AND GENOMIC MEDICINE Blood type A POSITIVE [facility] DEPARTMENT OF PATHOLOGY AND GENOMIC MEDICINE Product name Red Blood Cells -1, [facility] DEPARTMENT OF Leukored PATHOLOGY AND GENOMIC MEDICINE Unit number [id number] [facility] DEPARTMENT OF PATHOLOGY AND GENOMIC MEDICINE Product code [id number] [facility] DEPARTMENT OF PATHOLOGY AND GENOMIC MEDICINE Dispense status Returned to BB not [facility] DEPARTMENT OF transfused PATHOLOGY AND GENOMIC MEDICINE Blood expiration date [facility] DEPARTMENT OF PATHOLOGY AND GENOMIC MEDICINE Blood type code 6200 [facility] DEPARTMENT OF PATHOLOGY AND GENOMIC MEDICINE Blood type A POSITIVE [facility] DEPARTMENT OF PATHOLOGY AND GENOMIC MEDICINE Performing Organization Address City/[facility] Centercode Phone Number [facility] DEPARTMENT OF PATHOLOGY AND [address] [place] [address] GENOMIC MEDICINE Type and screen (03/05/2018 12:48 AM) ABO grouping A [facility] DEPARTMENT OF PATHOLOGY AND GENOMIC MEDICINE Rh type POS [facility] DEPARTMENT OF PATHOLOGY AND GENOMIC MEDICINE Antibody screen (gel) NEG [facility] DEPARTMENT OF PATHOLOGY AND GENOMIC MEDICINE Specimen Blood Performing Organization Address City/[facility] Centercode Phone Number [facility] DEPARTMENT OF PATHOLOGY AND [address] [place] [address] GENOMIC MEDICINE Phosphorus level (03/05/2018 12:48 AM) Phosphorus 3.5 2.4 - 4.5 mg/dL [facility] DEPARTMENT OF PATHOLOGY AND GENOMIC MEDICINE Specimen Plasma specimen Performing Organization Address [facility] Centercode Phone Number [facility] DEPARTMENT OF PATHOLOGY AND [address] [place] [address] MEDICINE Magnesium level (03/05/2018 12:48 AM) Magnesium 1.3 (L) 1.6 - 2.6 mg/dL [facility] DEPARTMENT OF PATHOLOGY AND GENOMIC MEDICINE Specimen Plasma specimen Performing Organization Address City/[facility]/Zipcode Phone Number [facility] DEPARTMENT OF PATHOLOGY AND [address] [place] [address] Lower Extremity Wo Contrast Right (03/04/2018 8:41 PM) Narrative Performed At EXAMINATION:CT LOWER EXTREMITY WO CONTRAST RIGHT RADIANT CLINICAL HISTORY: Fracturefemur COMPARISON:None. Technique: Images of the right lower extremity were performed without intravenous or intra-articular contrast. Study extends from above the level of the hip to below the level of the knee. Subsequent multiplanar reconstruction was obtained. Radiation dose reduction technique was utilized. FINDINGS: 1.There is a comminuted fracture of the distal femoral metaphysis extending into the femoral articular surface and intercondylar region. The distal fracture fragments are displaced posterior relative to the femoral shaft. 2.There is a metallic fragment in the proximal femoral shaft. 3.There are extensive degenerative changes at the knee joint. There is a large knee joint effusion. 4.No fracture identified in the patella, proximal tibia, or proximal fibula. IMPRESSION: Comminuted and displaced distal femoral fracture extending to distal femoral articular surface. [id number] Procedure Note [facility], Radiology Results Incoming - 03/04/2018 8:55 PM CDT EXAMINATION: CT LOWER EXTREMITY WO CONTRAST RIGHT CLINICAL HISTORY: Fracture femur COMPARISON: None. Technique: Images of the right lower extremity were performed without intravenous or intra-articular contrast. Study extends from above the level of the hip to below the level of the knee. Subsequent multiplanar reconstruction was obtained. Radiation dose reduction technique was utilized. FINDINGS: 1. There is a comminuted fracture of the distal femoral metaphysis extending into the femoral articular surface and intercondylar region. The distal fracture fragments are displaced posterior relative to the femoral shaft. 2. There is a metallic fragment in the proximal femoral shaft. 3. There are extensive degenerative changes at the knee joint. There is a large knee joint effusion. 4. No fracture identified in the patella, proximal tibia, or proximal fibula. IMPRESSION: Comminuted and displaced distal femoral fracture extending to distal femoral articular surface. [id number] Performing Organization Address City/State/Zipcode Phone Number [facility] [address] [place] [address] after 05/13/2017 Insurance Payer Benefit Plan / Group Subscriber ID Type Phone Address AETNA AETNA HMO,POS,EPO, MC/EC xxxxxxxxx O , Home: [place] [address]
--- OUTSIDE RECORDS SUMMARY | 2018-05-14 01:31 | XMS REPORT ---
[...] End Status Dosage System Date Date Singulair [facility] 15547979911 10 MG Orally Active 1 tablet Once a day Fish Oil [facility] 56770739253 1000 MG Orally Active 1 capsule Once a day Vitamin D3 [facility] 32697424838 79262 UNIT Active 1 capsule Orally Brintellix ND 0 10 mg orally Active 1 tablet once a day Combivent [facility] [address]-63 20-100 MCG/ACT Active 2 puff Respimat Inhalation Four times a day Cymbalta [facility] [address]-24 20 MG Orally Active 1 capsule Once a day PredniSONE ND 16331812112 5 MG Orally Active 1 tablet Once a day Folic Acid ND 51926437819 1 MG Orally Active 1 tablet Once a day Remicade [facility] 02446975451 100 MG Active as directed Intravenous Results No Known Results Summary Purpose eClinicalWorks Submission
--- OUTSIDE RECORDS SUMMARY | 2018-05-14 01:31 | XMS REPORT ---
[...] Dosage System Date Date Vitamin D3 [facility] 81884393588 [address]6984 UNIT Active 1 capsule Orally Fish Oil [facility] 24160767217 1000 MG Orally Active 1 capsule Once a day Lisinopril ND 08173559671 20 MG Orally January 27, Active 1 tablet Once a day [address] [facility] 66256954782 250 MG Active as directed Intravenous Singulair [facility] 69670142308 10 MG Orally Active 1 tablet Once a day Symbicort [facility] 69871957191 160-4.5 MCG/ACT Active 2 puffs Inhalation Twice a day Cymbalta [facility] 60369330700 20 MG Orally Active 1 capsule Once a day Librium NDC 0 BID Active 20 mg Metoprolol ND 53608065957 25 MG Orally Feb 10, Active 1 tablet Succinate ER Once a day [address] [facility] 13486981293 10 MG Orally Active 1 capsule Once a day in the morning PredniSONE ND 93627578249 5 MG Orally Once Active 1 tablet a day Folic Acid [facility] 18785528611 1 MG Orally Once Active 1 tablet a day Results No Known Results Summary Purpose eClinicalWorks Submission
[2018-05-14 03:11] LABS: Urine Blood NEGATIVE (NEG); Urine Glucose NEGATIVE (NEG); Urine Protein NEGATIVE (NEG); Urine Specific Gravity <1.005 (1.005-1.030); Urine pH 5.5 (5.0-7.0)
--- NOTE | 2018-05-14 04:39 | ER ---
Nurse's Notes [facility] Name: Yvette Nieto Age: 38 yrs Sex: Female : 1980 Arrival Date: 05/14/2018 Time: 01:30 Bed 15 Private MD: Diagnosis: Fall;Abrasion;Contusion;Head Injury;Musculoskeletal Pain Presentation: 05/14 01:39 Presenting complaint: EMS states: they were toned out for report of pt having fallen bb with possible LOC. Care prior to arrival: Cervical collar in place. Placed on backboard. Mechanism of Injury: Fall from standing position. Trauma event details: Injury occurred in the [facility], Injury occurred: at home. Injury occurred: May 14, 2018. 01:39 Acuity: SANDIE 3 bb 01:39 Method Of Arrival: EMS: [facility] bb 01:42 Transition of care: patient was not received from another setting of care. Onset of bb symptoms was May 14, 2018. Risk Assessment: Do you want to hurt yourself or someone else? Patient reports no desire to harm self or others. Initial Sepsis Screen: Does the patient meet any 2 criteria? No. Patient's initial sepsis screen is negative. Does the patient have a suspected source of infection? No. Patient's initial sepsis screen is negative. Triage Assessment: 01:45 General: Appears in no apparent distress. uncomfortable, Behavior is calm, cooperative, cc3 appropriate for age. Pain: Complains of pain in left eyebrow and outer aspect of left eyebrow left leg. EENT: Eyes abrasion on the outer aspect of left eyebrow. Neuro: Level of Consciousness is awake, alert, obeys commands, Oriented to person, place, time, situation, Appropriate for age. Cardiovascular: Denies chest pain. Respiratory: Airway is patent Trachea midline Respiratory effort is even, unlabored, Respiratory pattern is regular, symmetrical. GI: Abdomen is round obese. : Urine is clear. Derm: Wound noted left eyebrow and outer aspect of left eyebrow, and small wound on the post-surgical site at the right lateral thigh which was done 10 weeks ago for her right femur fracture. Musculoskeletal: Circulation, motion, and sensation intact. Range of motion: intact in all extremities. Injury Description: Abrasion sustained to left eyebrow and outer aspect of left eyebrow. 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: 01:46 LMP 04/28/2018 bb Trauma Activation: Alert Physician: ED Physician; Name: ; Notified At: 01:39; Arrived At: 01:39 Physician: General Surgeon; Name: ; Notified At: 01:39; Arrived At: Physician: Radiology; Name: Paola Taylor; Notified At: 01:39; Arrived At: 01:39 Physician: Respiratory; Name: ; Notified At: 01:39; Arrived At: Physician: Lab; Name: ; Notified At: 01:39; Arrived At: Historical: - Allergies: 01:46 Morphine (Itching); bb - Home Meds: 01:46 Orencia 125 mg/mL subcutaneous syrg 1 mL once wkly [Active]; prednisone 10 mg oral tab bb once daily [Active]; Lisinopril Oral [Active]; Metformin Oral [Active]; ProAir HFA inhalation inhalation [Active]; Benadryl Oral as needed [Active]; - PMHx: 01:46 Hypertension; Rheumatoid Arthritis; Tachycardia; Inflammatory Asthma; PCOS; bb - PSHx: 01:46 Gastric Bypass; Left knee replacement; left leg surgery for staph infection; bb Cholecystectomy; ovarian cyst; - Immunization history: Last tetanus immunization: unknown. - Social history:: Smoking status: Patient/guardian denies using tobacco, Patient uses alcohol, occasionally. Patient/guardian denies using street drugs. - Ebola Screening: : No symptoms or risks identified at this time. Screenin:39 Abuse screen: Denies threats or abuse. Tuberculosis screening: No symptoms or risk bb factors identified. 01:47 Nutritional screening: No deficits noted. Fall Risk Fall in past 12 months (25 points). bb Secondary diagnosis (15 points) impaired mobility, IV access (20 points). Ambulatory Aid- None/Bed Rest/Nurse Assist (0 pts). Gait- Impaired (20 pts.). Mental Status- Oriented to own ability (0 pts). Total Chaudhari Fall Scale indicates High Risk Score (45 or more points). Fall prevention measures have been instituted. Side Rails Up X 2 As available patient and family educated on Fall Prevention Program and Strategies. Primary Survey: 01:39 A: Airway: patent. Breathing/Chest: Respiratory pattern: regular, Respiratory effort: bb spontaneous, unlabored. Circulation: Heart tones present. Disability Alert. 01:45 Reassessment Airway Airway Patent Breathing/Chest Respiratory pattern Regular cc3 Respiratory effort Spontaneous Unlabored Breath sounds Clear Chest inspection Symmetrical Circulation Heart tones Present Color Tolar. Secondary Survey: 01:45 HEENT: Head No injury/deformity Face No injury/deformity Eyes: Other abrasion on the cc3 outer aspect of the left eyebrow Ears: clear bilaterally. Nose: clear to bilateral nares. Throat: No injury or deformity noted. is clear with gag reflex present. Gastrointestinal: No deficits noted. : Urine is clear. Musculoskeletal: Reports pain in left leg. small open wound from post-surgical site that was done 10 weeks ago for her right femur fracture. Injury Description: Abrasion sustained to left eyebrow and outer aspect of left eyebrow. Assessment: 01:45 General: Appears in no apparent distress. uncomfortable, Behavior is calm, cooperative, cc3 appropriate for age. Pain: Complains of pain in left eyebrow and outer aspect of left eyebrow, left leg Quality of pain is described as aching. Neuro: Level of Consciousness is awake, alert, obeys commands, Oriented to person, place, time, situation, Appropriate for age. EENT: Eyes abrasion on the outer aspect of left eyebrow. Cardiovascular: Denies chest pain. Respiratory: Airway is patent Respiratory effort is even, unlabored, Respiratory pattern is regular, symmetrical. GI: Abdomen is round obese. : Urine is clear. Derm: noted to have small wound from the post-surgical site that was done 10 weeks ago for her right femur fracture. Musculoskeletal: Circulation, motion, and sensation intact. Range of motion: intact in all extremities. Injury Description: Abrasion sustained to left eyebrow and outer aspect of left eyebrow. 01:48 Reassessment: trauma code activated. cc3 02:00 Reassessment: Patient appears in no apparent distress at this time. Patient and/or cc3 family updated on plan of care and expected duration. Pain level reassessed. Patient is alert, oriented x 3, equal unlabored respirations, skin warm/dry/pink. series of xrays done bedside for the patient by the xray technicians. 02:05 Reassessment: military pay technician took the patient by stretcher for procedure. cc3 02:40 Reassessment: Patient came back from CT scan department. cc3 03:20 Reassessment: Patient appears in no apparent distress at this time. Patient and/or cc3 family updated on plan of care and expected duration. Pain level reassessed. Patient is alert, oriented x 3, equal unlabored respirations, skin warm/dry/pink. 04:15 Reassessment: Patient appears in no apparent distress at this time. Patient and/or cc3 family updated on plan of care and expected duration. Pain level reassessed. Patient is alert, oriented x 3, equal unlabored respirations, skin warm/dry/pink. 04:20 Reassessment: Informed Dr. Moe that patient complains of headache and is asking for cc3 an intravenous pain medication. 04:55 Reassessment: Patient appears in no apparent distress at this time. Patient and/or cc3 family updated on plan of care and expected duration. Pain level reassessed. Patient is alert, oriented x 3, equal unlabored respirations, skin warm/dry/pink. Dr. Moe discharged the patient home with prescription given. IV cannula removed and patient left ER vitally stable by wheelchair with her family. Vital Signs: 01:39 BP 133 / 84; Pulse 108; Resp 18 S; Pulse Ox 99% on R/A; Weight 137.89 kg (R); Height 5 bb ft. 7 in. (170.18 cm) (R); Pain 8/10; 02:42 BP 119 / 76; Pulse 105; Resp 17 S; Pulse Ox 99% on R/A; cc3 03:10 BP 129 / 90; Pulse 99; Resp 16; Pulse Ox 100% on R/A; cc3 04:26 BP 133 / 80; Pulse 101; Resp 16 S; Pulse Ox 100% on R/A; cc3 01:39 Body Mass Index 47.61 (137.89 kg, 170.18 cm) bb Needham Coma Score: 01:39 Eye Response: spontaneous(4). Verbal Response: oriented(5). Motor Response: obeys bb commands(6). Total: 15. Trauma Score (Adult): 01:39 Eye Response: spontaneous(1); Verbal Response: oriented(1); Motor Response: obeys bb commands(2); Systolic BP: > 89 mm Hg(4); Respiratory Rate: 10 to 29 per min(4); Needham Score: 15; Trauma Score: 12 ED Course: 01:30 Patient arrived in ED. am2 01:37 Jamia Bey FNP-C is [facility]. snw 01:37 Jose Alfredo Moe MD is Attending Physician. snw 01:39 Patient has correct armband on for positive identification. Bed in low position. Call bb light in reach. Side rails up X2. 01:39 Patient maintains SpO2 saturation greater than 95% on room air. bb 01:40 Triage completed. bb 01:43 Alejandra Mccrary is Primary Nurse. cc3 01:46 Arm band placed on Patient placed in an exam room, on a stretcher, on pulse oximetry. bb 01:48 Thermoregulation: warm blanket given to patient. bb 01:56 Radiology exam delayed due to XRay currently in patient's room. kw1 02:11 X-ray completed. Portable x-ray completed in exam room. Patient tolerated procedure sg4 well. 02:[address] via stretcher. kw1 02:13 Knee Left 3 View XRAY In Process Unspecified. EDMS 02:31 CT Head C Spine In Process Unspecified. EDMS 02:33 Thoracic Spine WO Cont CT In Process Unspecified. EDMS 02:36 CT completed. Patient tolerated procedure well. Patient moved back from CT. kw1 02:50 Inserted saline lock: 20 gauge in left antecubital area, using aseptic technique. cc3 03:02 Hip Right 2 View XRAY In Process Unspecified. EDMS 03:02 Knee Right 2 View In Process Unspecified. EDMS 04:55 No provider procedures requiring assistance completed. IV discontinued, intact, cc3 bleeding controlled, No redness/swelling at site. Pressure dressing applied. Administered Medications: 04:44 CANCELLED (Duplicate Order): TORadol 30 mg IVP once cc3 04:46 Drug: TORadol 30 mg Route: IVP; Site: left antecubital; cc3 04:55 Follow up: Response: No adverse reaction; Pain is decreased cc3 Intake: 01:39 PO: 0ml; Total: 0ml. bb Outcome: 04:39 Discharge ordered by . ps1 04:55 Discharged to home via wheelchair, with family. cc3 04:55 Condition: stable 04:55 Discharge instructions given to patient, family, Instructed on discharge instructions, follow up and referral plans. medication usage, Demonstrated understanding of instructions, follow-up care, medications, Prescriptions given X 1. 04:55 for observation and waited for the CT scan results.Patient's length of stay extended cc3 due to 04:57 Patient left the ED. cc3 Signatures: Dispatcher [employer] EDMS Jamia Bey, STRATEGIC PLANNING DIRECTOR-C STRATEGIC PLANNING DIRECTOR-Csnw Jeniffer Holt RN RN Chely Price am2 Jose Alfredo Moe MD MD ps1 Funmilayo Brown kw1 Alejandra Mccrary cc3 Devora Lopez sg4 Corrections: (The following items were deleted from the chart) 02:30 01:40 General: trauma code activated. cc3 cc3 02:31 01:48 General: trauma code activated. cc3 cc3
--- NOTE | 2018-05-14 04:39 | EDPHYS ---
Physician Documentation [facility] Name: Yvette Nieto Age: 38 yrs Sex: Female : 1980 Arrival Date: 05/14/2018 Time: 01:30 Bed 15 Private MD: ED Physician Jose Alfredo Moe HPI: 05/14 01:44 This 38 yrs old Female presents to ER via EMS with complaints of Fall Injury. snw 01:44 Details of fall: The patient fell from an upright position, while standing. Onset: The snw symptoms/episode began/occurred acutely, today. Associated injuries: The patient sustained injury to the head, neck injury, upper back injury, left knee. Severity of symptoms: At their worst the symptoms were moderate. The patient has not experienced similar symptoms in the past. femur rodding 10 wks ago. + ETOH . 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: 01:46 LMP 04/28/2018 bb Historical: - Allergies: 01:46 Morphine (Itching); bb - Home Meds: 01:46 Orencia 125 mg/mL subcutaneous syrg 1 mL once wkly [Active]; prednisone 10 mg oral tab bb once daily [Active]; Lisinopril Oral [Active]; Metformin Oral [Active]; ProAir HFA inhalation inhalation [Active]; Benadryl Oral as needed [Active]; - PMHx: 01:46 Hypertension; Rheumatoid Arthritis; Tachycardia; Inflammatory Asthma; PCOS; bb - PSHx: 01:46 Gastric Bypass; Left knee replacement; left leg surgery for staph infection; bb Cholecystectomy; ovarian cyst; - Immunization history: Last tetanus immunization: unknown. - Social history:: Smoking status: Patient/guardian denies using tobacco, Patient uses alcohol, occasionally. Patient/guardian denies using street drugs. - Ebola Screening: : No symptoms or risks identified at this time. ROS: 01:43 Constitutional: Negative for fever, chills, and weight loss. snw 01:43 ENT: Negative for injury, pain, and discharge, Neck: Negative for injury and swelling, + pain to posterior neck Cardiovascular: Negative for chest pain, palpitations, and edema, Respiratory: Negative for shortness of breath, cough, wheezing, and pleuritic chest pain, Abdomen/GI: Negative for abdominal pain, nausea, vomiting, diarrhea, and constipation, Back: Negative for injury and pain, : Negative for injury, bleeding, discharge, and swelling. 01:43 Skin: Negative for injury, rash, and discoloration. 01:43 Eyes: Positive for injury or acute deformity, of the left eyebrow. 01:43 MS/extremity: Positive for contusion, pain, swelling, of the left knee. 01:43 Neuro: Positive for loss of consciousness. Exam: 01:40 Constitutional: This is a well developed, well nourished patient who is awake, alert, snw and in no acute distress. Head/Face: Normocephalic, atraumatic. ENT: Nares patent. No nasal discharge, no septal abnormalities noted. Tympanic membranes are normal and external auditory canals are clear. Oropharynx with no redness, swelling, or masses, exudates, or evidence of obstruction, uvula midline. Mucous membranes moist. Neck: Trachea midline, no thyromegaly or masses palpated, and no cervical lymphadenopathy. Supple, full range of motion without nuchal rigidity, or vertebral point tenderness. No Meningismus. Chest/axilla: Normal chest wall appearance and motion. Nontender with no deformity. No lesions are appreciated. Cardiovascular: Regular rate and rhythm with a normal S1 and S2. No gallops, murmurs, or rubs. Normal PMI, no JVD. No pulse deficits. Respiratory: Lungs have equal breath sounds bilaterally, clear to auscultation and percussion. No rales, rhonchi or wheezes noted. No increased work of breathing, no retractions or nasal flaring. Abdomen/GI: Soft, non-tender, with normal bowel sounds. No distension or tympany. No guarding or rebound. No evidence of tenderness throughout. Back: No spinal tenderness. No costovertebral tenderness. Full range of motion. Skin: Warm, dry with normal turgor. Normal color with no rashes, no lesions, and no evidence of cellulitis. Neuro: Awake and alert, GCS 15, oriented to person, place, time, and situation. Cranial nerves II-XII grossly intact. Motor strength 5/5 in all extremities. Sensory grossly intact. Cerebellar exam normal. Normal gait. 01:40 Eyes: Periorbital structures: contusion, ecchymosis, that is moderate, on the outer aspect of left eyebrow, Pupils: no acute changes, Extraocular movements: no acute changes, Conjunctiva: normal. 01:40 Psych: Behavior/mood is pleasant, cooperative, Affect is calm, Oriented to person, place, time, + ETOH. Vital Signs: 01:39 BP 133 / 84; Pulse 108; Resp 18 S; Pulse Ox 99% on R/A; Weight 137.89 kg (R); Height 5 bb ft. 7 in. (170.18 cm) (R); Pain 8/10; 02:42 BP 119 / 76; Pulse 105; Resp 17 S; Pulse Ox 99% on R/A; cc3 03:10 BP 129 / 90; Pulse 99; Resp 16; Pulse Ox 100% on R/A; cc3 04:26 BP 133 / 80; Pulse 101; Resp 16 S; Pulse Ox 100% on R/A; cc3 01:39 Body Mass Index 47.61 (137.89 kg, 170.18 cm) bb Simin Coma Score: 01:39 Eye Response: spontaneous(4). Verbal Response: oriented(5). Motor Response: obeys bb commands(6). Total: 15. Trauma Score (Adult): 01:39 Eye Response: spontaneous(1); Verbal Response: oriented(1); Motor Response: obeys bb commands(2); Systolic BP: > 89 mm Hg(4); Respiratory Rate: 10 to 29 per min(4); Simin Score: 15; Trauma Score: 12 MDM: 01:47 Patient medically screened. snw 04:37 Data reviewed: vital signs, nurses notes, lab test result(s), radiologic studies, and ps1 as a result, I will discharge patient. 05/14 02:04 Order name: Urine Dipstick--Ancillary (enter results); Complete Time: 03:44 mw2 05/14 01:40 Order name: CT Head C Spine snw 05/14 01:40 Order name: Thoracic Spine WO Cont CT snw 05/14 01:40 Order name: Knee Left 3 View XRAY snw 05/14 01:50 Order name: Hip Right 2 View XRAY snw 05/14 02:49 Order name: Knee Right 2 View EDMS Administered Medications: 04:44 CANCELLED (Duplicate Order): TORadol 30 mg IVP once cc3 04:46 Drug: TORadol 30 mg Route: IVP; Site: left antecubital; cc3 04:55 Follow up: Response: No adverse reaction; Pain is decreased cc3 Disposition: 04:37 Co-signature as Attending Physician, Jose Alfredo Moe MD. ps1 Disposition: 05/14/18 04:39 Discharged to Home. Impression: Fall, Abrasion, Contusion, Head Injury, Musculoskeletal Pain. - Condition is Stable. - Discharge Instructions: Fall Prevention in the Home. - Prescriptions for Tramadol 50 mg Oral Tablet - take 1 tablet by ORAL route every 8 hours as needed; 12 tablet. - Medication Reconciliation Form, Thank You Letter, Antibiotic Education, Prescription Opioid Use form. - Follow up: Private Physician; When: As needed; Reason: Recheck today's complaints, Continuance of care, Re-evaluation by your physician. Follow up: Emergency Department; When: As needed; Reason: Worsening of condition. - Problem is new. - Symptoms have improved. Signatures: Dispatcher [employer] EDMS Jamia Bey, POLITICAL GEOGRAPHER-C POLITICAL GEOGRAPHER-Csnw Jeniffer Holt, RN RN bb Jose Alfredo Moe MD MD ps1 Alejandra Mccrary cc3 Corrections: (The following items were deleted from the chart) 02:49 01:50 Femur Right+RAD.RAD.BRZ ordered. EDWI EDMS 02:49 02:46 Knee Right 3 View+RAD.RAD.BRZ ordered. EDWI EDMS 04:44 04:43 TORadol 30 mg IVP once ordered. cc3 cc3 04:57 04:39 05/14/2018 04:39 Discharged to Home. Impression: Fall; Abrasion; Contusion; Head cc3 Injury; Musculoskeletal Pain. Condition is Stable. Forms are Medication Reconciliation Form, Thank You Letter, Antibiotic Education, Prescription Opioid Use. Follow up: Private Physician; When: As needed; Reason: Recheck today's complaints, Continuance of care, Re-evaluation by your physician. Follow up: Emergency Department; When: As needed; Reason: Worsening of condition. Problem is new. Symptoms have improved. ps1
[2018-05-14] MEDS ORDERED: KETOROLAC 30 MG/ML INJ ONE (04:54)
--- NOTE | 2018-05-14 08:02 | RAD REPORT ---
EXAM DESCRIPTION: RAD - Knee Left 3 View - 05/14/2018 2:13 am CLINICAL HISTORY: Fall, leg pain A preliminary report was provided at the time of the study and reviewed prior to final report. COMPARISON: None. FINDINGS: No fracture, dislocation or periosteal reaction.Total knee prosthesis in place. No radiogr aphic evidence for loosening. Postsurgical changes are noted to the patella with degenerative spurrin g changes along the inferior margin. No air or foreign body in the soft tissues. Contusion or edema c hanges are present in the fatty tissues anterior to the knee from patella 2 tibial tubercle level. IMPRESSION: Left total knee prosthesis in place. No acute bone, joint or implant finding. Edema or contusion in the anterior knee soft tissues.
--- NOTE | 2018-05-14 08:05 | RAD REPORT ---
EXAM DESCRIPTION: CT - CTHCSPWOC - 05/14/2018 4:41 am CLINICAL HISTORY: Fall, head and neck injury A preliminary report was provided at the time of the study and reviewed prior to final report. COMPARISON: None. TECHNIQUE: Axial 5 mm thick images of the head were obtained. Axial 2 mm thick images of the cervic al spine were obtained with sagittal and coronal reconstruction images generated and reviewed. All CT scans are performed using dose optimization technique as appropriate and may include automated exposure control or mA/KV adjustment according to patient size. FINDINGS: No intracranial hemorrhage, mass, edema or acute intracranial finding. No suspicion for acute infarct ion. No extra-axial fluid collections. Mastoid air cells and paranasal sinuses are clear. No globe or orbit abnormality seen. Cervical body height and alignment are normal. No disk space narrowing. No fracture or acute bony abn ormality. No paraspinal mass or hematoma. IMPRESSION: Negative CT head examination for acute or significant finding. Negative CT cervical spine examination for acute or significant finding.
--- NOTE | 2018-05-14 08:08 | RAD REPORT ---
EXAM DESCRIPTION: RAD - Hip Right 2 View - 05/14/2018 3:02 am CLINICAL HISTORY: Fall, hip pain A preliminary report was provided at the time of the study and reviewed prior to final report. COMPARISON: None. FINDINGS: AP and frog-leg views of the right hip were obtained. Detail is limited due to the large amount of soft tissues overlying the hip joint. There is no dislocation and no gross fracture deformi ty seen. Hardware is in place from remote femoral shaft fracture repair. No fracture of the visualize d hardware. No pathologic bone process suspected. IMPRESSION: No fracture, dislocation or acute finding seen. Exam is limited by large body habitus.
--- NOTE | 2018-05-14 08:12 | RAD REPORT ---
EXAM DESCRIPTION: RAD - Knee Right 2 View - 05/14/2018 3:02 am CLINICAL HISTORY: Fall, leg pain, history of recent fracture dislocation repair. A preliminary report was provided at the time of the study and reviewed prior to final report. COMPARISON: Pre-surgical leg fracture images March 04 FINDINGS: Since the prior imaging, patient has undergone fracture repair and hardware placement. Pat ient had a distal femur fracture dislocation. Fracture fragments are in near anatomic alignment and p osition. No fracture of the surgical hardware. Callus formation is seen around the fracture plane. Gabe ny union is not complete. Extent of callus formation and fracture repair felt to be within normal boyd its. Alignment and position of the fracture fragments appears to be appropriate for the severity of t he fracture. The patient's immediate postsurgical repair images are not available. Significant change in alignment or position since surgery is doubtful.Soft tissue swelling is present. No air or foreig n body seen. IMPRESSION: Fracture repair of a previously diagnosed fracture dislocation of the distal femur is no jamila. No acute bone or hardware finding suspected. Clinical concerns for internal derangement or occult bony injury could be further assessed with MR imaging.
--- NOTE | 2018-05-14 08:16 | RAD REPORT ---
EXAM DESCRIPTION: CT - Thoracic Spine W/o Cont - 05/14/2018 4:42 am CLINICAL HISTORY: Fall, back pain A preliminary report was provided at the time of the study and reviewed prior to final report. COMPARISON: None. TECHNIQUE: Axial 3 mm thick images of the thoracic spine were obtained from the mid C7 to the mid T1 2 level with sagittal and coronal reconstruction images generated and reviewed. All CT scans are performed using dose optimization technique as appropriate and may include automated exposure control or mA/KV adjustment according to patient size. FINDINGS: Thoracic body height and alignment are normal. No disk space narrowing. No fracture or acu te bony abnormality. Minimal endplate spurring changes are present. No paraspinal mass or hematoma. Central canal detail is inherently limited on CT imaging. IMPRESSION: Negative CT thoracic spine examination for acute or significant finding.
== END 2018-05-14 04:57 | disposition home or self-care (01) ==
LOC: ER 01:29
DX: S80.02XA Contusion of left knee, initial encounter (principal); M79.18 Myalgia, other site; T14.8XXA Other injury of unspecified body region, initial encounter; W19.XXXA Unspecified fall, initial encounter; Y93.9 Activity, unspecified; Y92.9 Unspecified place or not applicable; Z88.5 Allergy status to narcotic agent; I10 Essential (primary) hypertension
CPT/HCPCS: 70450; 72125; 72128; 81003; 96374; 99285

== ENCOUNTER 2021-10-29 16:45 | Emergency (ER) | payer OTHER ==
--- OUTSIDE RECORDS SUMMARY | 2021-10-29 16:48 | XMS REPORT | Continuity of Care Document ---
:1980 Author Organization [facility] t Address [address] [place] [address] [address] [place] [address] Care Team Providers Name Role Phone Tavares Martinez MD, Clem Fuller Primary Care Physician Jeimy Love Attending Clinician Unavailable KAROLINE CLEMENT Attending Clinician Unavailable KRISTINA RIVERA Attending Clinician Unavailable VIPUL GONSALEZ Attending Clinician Unavailable Jami Suggs Admitting Clinician Unavailable Physician, Primary or Family Admitting Clinician UnavailSILVESTRE Longoria Admitting Clinician Unavailable Payers Payer Name Policy Type Policy Number Effective Date Expiration Date S dayana [facility] [id number] 2014 00:00:00 Problems Condition Condition Condition Status Onset Resolution Last Treating Co mments Source Name Details Category Date Date Treatment Clinician Date Femur Femur Disease Active Methodi fracture fracture 03-04 00:00: Hospita 00 l Supracondy Supracondy Disease Active M ethodi l fx l fx 03-04 femur-clos femur-clos 00:00: Ho spita ed, right, ed, right, 00 l initial initial encounter encounter Uncomplica Uncomplica Problem Active [facility], asthma, [facility] unspecifie unspecifie l d asthma d asthma Outpat i severity, severity, ent unspecifie unspecifie Cl inics d whether d whether persistent persistent Depression Depression Problem Active [facility] with with [facility] - anxiety anxiety [facility] Clinics Seasonal Seasonal Problem [facility] Essential Essential Problem Active [facility] (primary) (primary) Luke [facility] - hypertensi hypertensi Me moria on on l [facility] Edema, Edema, Problem Active [facility] unspecifie unspecifie Yudi kes - d type d type Memoria l [facility] Clin[facility] Rheumatoid Rheumatoid Problem Active [facility] arthritis arthritis Luke s - involving involving Heriberto malissa multiple multiple l sites, sites, Outpati unspecifie unspecifie en t d d Clinics rheumatoid rheumatoid factor factor presence presence Irritable Irritable Problem Active [facility] bowel bowel [facility] - syndrome syndrome Memori a with with l diarrhea diarrhea Outpat i ent Clinics GERD GERD Problem Active [facility] without without [facility] - esophagiti esophagiti Me moria s s l Outpati ent Clinics PCOS PCOS Problem Active [facility] (polycysti (polycysti Yudi kes - c ovarian c ovarian Heriberto malissa syndrome) syndrome) l Outpati ent Clinics Vaginal Vaginal Problem Active [facility] bleeding bleeding [facility] Fall in Fall in Diagnosis Active [facility] bathtub, bathtub, [facility] - initial initial Memoria encounter encounter l Outpati ent Clinics Encounter Encounter Diagnosis Active [facility] for for [facility] - removal of removal of Me moria sutures sutures l [facility] Clinics Allergies, Adverse Reactions, Alerts Allergy Allergy Status Severity Reaction(s) Onset Inactive Treating Comm ents Source Name Type Date Date Clinician No Known DA Active U 2020-07 [facility] All[facility]ie 08-10 [facility] [place] Morphine Propensi Active Method i ty to [address] adverse 00:00: Hospita reaction 00 l s to drug MORPHINE DRUG Active ITCHING [facility] INGREDI 5-18 ity of 00:00: [address] ZINC DRUG Active Swelling [facility] LOZENGES 5-18 ity of 00:00: [place] [facility] MORPHINE Adverse Active itching [facility] Zoloft Adverse Active Info Not [facility] Reaction Available [facility] Wellbutr Adverse Active Info Not [facility] in Reaction Available [facility] Paxil Adverse Active Info Not [facility] Reaction Available [facility] Celexa Adverse Active Info Not [facility] Reaction Available [facility] BusPIRon Adverse Active Info Not [facility] t e HCl Reaction Available [facility] ent [facility] Family History Family Member Diagnosis Comments Start Date Stop Date Source Natural father Arthritis [facility] Natural father Hyperlipidemia [facility] Natural mother Arthritis [facility] Natural mother Diabetes [facility] mother Thyroid cancer [facility] Natural sister Endometriosis [facility] Social History Social Habit Start Date Stop Date Quantity Comments Source History SDOH [facility] Alcohol Frequency Hospita l History SDOH [facility] Alcohol Std Drinks Hospit al History SDNJ [facility] History of tobacco Cigarette Smoker [facility] use [facility] Alcohol intake 2018-03-17 2018-03-17 .29 /d [facility] 00:00:00 00:00:00 Hospital Alcohol Comment 2018-03-05 2018-03-[address] 00:00:00 00:00:00 Hospital Cigarettes smoked 2018-03-05 2018-03-[address] current (pack per 00:00:00 00:00:00 Hospita l day) - Reported Cigarette 2018-03-05 2018-03-05 [facility] pack-years 00:00:00 00:00:00 Hospital Tobacco use and 2018-03-05 2018-03-05 Smokeless tobacco Me thodist exposure 00:00:00 00:00:00 non-user Hospital Sex Assigned At [birth year] [facility] 00:00:00 00:00:00 Hospital Smoking Status Start Date Stop Date Source Ex-smoker 2018-03-05 00:00:00 2018-03-05 00:00:00 [facility] Medications Ordered Filled Start Stop Current Ordering Indication Dosage Frequency Signature Comments Components Source Medication Medication Date Date Medication? Clinician (SIG) Name Name lisinopril Yes 20mg QD Take 20 mg M ethodi (PRINIVIL,Z 8-[address] ESTRIL) 20 16:11: daily. Hospi ta mg tablet 11 l metoprolol 2017-0 Yes 25mg Q.5D Take 25 mg M ethodi tartrate 8-[address] (LOPRESSOR) 16:11: (two) Hospi ta 25 mg 11 times a l tablet day as needed. DULoxetine 2018 Yes 60mg QD Take 60 mg M ethodi (CYMBALTA) 8-[address] 60 MG 16:11: daily. Hospita capsule 11 l predniSONE 2017-0 Yes 10mg QD Take 10 mg M ethodi (DELTASONE) 8-[address] 10 mg 16:11: daily. Hospita tablet 11 l ibuprofen Yes 800mg Q6H Take 800 Met hodi (ADVIL,MOTR 8-[address] IN) 800 MG 16:11: mouth Hospit a tablet 11 every 6 l (six) hours as needed for mild pain. budesonide- 0 Yes 2{puff} Q.5D Inhale 2 Methodi formoterol 8-[address] (SYMBICORT) 16:11: (two) Hospi ta 160-4.5 11 times a l mcg/actuati day. on inhaler FLUoxetine Yes 20mg QD Take 20 mg M ethodi (PROzac) 20 8-[address] MG capsule 16:11: daily. Hospi ta 11 l chlordiazeP 2017-0 Yes 10mg Q.5D Take 10 mg Methodi OXIDE 8-[address] (LIBRIUM) 16:11: (two) Hospita 10 MG 11 times a l capsule day. clonAZEPAM 20180 Yes .25mg Q.5D Take 0.25 M ethodi (KlonoPIN) 8-[address] 0.5 MG 16:11: mouth 2 Hospita tablet 11 (two) l times a day as needed (panic attack). multivitami 2017-0 Yes 1{tbl} QD Take 1 Me thodi n 8-[address] (THERAGRAN) 16:11: mouth Hospi ta tablet 11 daily. l Fish Oil Fish Oil Yes Luh [address] [place] [facility] Symbicort Symbicort Yes Luh [address] [place] [facility] Metoprolol Metoprolol Yes Luh [address] Succinate Succinate [place] [facility] - ER ER [facility] l Outpati ent Clinics Xidustin Angel Yes Luh [address] [place] into [facility] - affected Memoria eye l Outpati ent Clinics Symphony Symphony Yes Luh as [facility] Double Double [place] directed [facility] - Pumping [place] [facility] System System l Outpati ent Clinics Cymbalta Cymbalta Yes Luh [address] [place] [facility] Folic Acid Folic Acid Yes Luh [address] [facility] [place] [facility] Vitamin D3 Vitamin D3 Yes Luh [address] [place] [facility] Pregabalin Pregabalin Yes Luh (Schedule [facility] [place] V Drug) [facility] - TAKE 1 Memoria CAPSULE BY l MOUTH Outpati EVERY DAY ent Clinics Maricruz Maricruz Yes Luh [address] Allergy Allergy [place] as needed Jose es - Memoria l Outpati ent Clinics Lotemax Lotemax Yes Luh [address] [place] into the [facility] - lower Memoria eyelid of l affected Outpati eye ent Clinics Mupirocin Mupirocin Yes Luh [address] [facility] [place] applicatio [facility] n [facility]i ent Clinics PredniSONE PredniSONE Yes Luh [address] [place] [facility]ics Singulair Singulair Yes Luh [address] [place] [facility]ics Promethazin Promethazin Yes Luh TAKE [address] e HCl e HCl [place] TABLET BY [facility] - MOUTH Memoria EVERY 8 l HOURS Outpati NEEDED FOR ent ALLERGIES/ Clinics NAUSEA/VOM ITING Procedures This patient has no known procedures. Plan of Care Planned Activity Planned Date Details Comments Source Future Scheduled 2021-05-22 COVID-[address] [facility] Test 12:10:09 (1) [code = COVID-19 VACCINE (1)] Future Scheduled 2021-05-22 [facility] for [facility] 12:10:09 malignant neoplasm of cervix (procedure) [code = 059366651] Future Scheduled 2021-05-22 INFLUENZA VACCINE [facility] Test 12:10:09 [code = INFLUENZA VACCINE] Encounters Start End Encounter Admission Attending Care Care Encounter Source Date/Time Date/Time Type Type Clinicians Facility Department ID 2021-06-12 Inpatient NATY Flores LABO [id number] [facility] 13:30:00 Jyoti [id number] [facility] [place] 2021-09-25 2021-09-25 Outpatient URBANO [facility] [id number] 10:35:00 23:59:[address] [facility] 2021-06-10 2021-06-10 Outpatient NATY Flores LABO [id number] [facility] 08:00:00 23:00:00 Jyoti [id number] [facility] [place] 2021-06-12 2021-06-[address] Flores [facility] [id number] [facility] 13:30:00 13:30:00 Jyoti 88 [facility] [place] 2020-09-29 2020-09-29 Outpatient [facility] [id number] [facility] 15:25[facility] 2020-09-08 2020-09-08 Outpatient [facility] [id number] [facility] 15:10:00 15:10:00 [facility] 2020-01-06 2020-01-06 Outpatient JOSÉ MIGUEL RIVERA [facility] [id number] [facility] 05:43:00 08:05:00 [facility] 2019-11-14 2019-11-19 Inpatient Tone GONSALEZ [facility] [id number] 21:35:00 16:51:[address] [facility] 2019-09-27 2019-09-27 [facility] [id number] 10[facility]00:00 10:00:00 [facility] Outpat[facility] ent Clinics 2018-02-15 2018-02-15 [facility] [id number] 08:49:00 08:49:00 [facility] Outpati ent Clinics 2018-02-10 2018-02-10 [facility] [id number] 13:00:00 13:00:00 [facility] 2018-01-27 2018-01-27 Outpatient Twin [facility]te[facility] [id number] 16:15:00 16:15:00 [facility] ent [facility] 2018-01-27 2018-01-27 Outpatient [facility] [place] [id number] 15:12:00 15:12:00 [facility] Results Test Description Test Time Test Comments Results Result Comments Source COVID 19 Asymptomatic IH AG 2021-06-10 19:59:00 Test Item Value Reference Range Interpretation Comme nts COVID 19 Asymptomatic IH AG POSITIVE NEGATIVE A RESULTS CALLED TO UNABLE TO REACH, (test code = COVNONPUIAG) WI LL CALL TOMORROWREAD BACK & CONFIRMED? [email or web address] 06/10/211958This test h as been authorized only for the de tection ofproteins from SARS-CoV-2 , not for any other viruses orpatho gens. Negative results should be treated as presumptive and confirmed with a molecular assay , if necessary for patientmanageme nt. Negative results do not rule out COVID-19 andshould not be used as the sole basis for treatment orpat ient management decisions, incl uding infection controldecision s. Negative results should be consi dered in thecontext of a patient's recent exposures, history and the presence of clinical signs and sympt oms consistent withCOVID-19. T his test has not been FDA cleare d or approved; the test hasbeen au thorized by FDA under an Emerge ncy Use Authorization(E UA) for use by laboratories ce rtified under the CLIA thatmeet t he requirements to perform moderat e, high or waivedcomplexit y tests. This test is authorized f or use at thePoint of Care (POC), i.e., in patient care settingsop erating under a CLIA Certificate of Waiver, Certificate ofCompliance, o r Certificate of Accreditation. This test is only authorized for the duration of thedeclaration that circumstances exist justifyin g theauthorization of emergency us e of in vitro diagnostic test sfor detection and/or diagnosi s of COVID-19 under Rzdabdg010(b)(1 ) of the Act, 21 U.S.C. 360bbb -3(b)(1), unless theauthorizatio n is terminated or revoked sooner. BASIC METABOLIC [id number] 18:19:00 Test Item Value Reference Range Interpretation Comments SODIUM (test code = NA) 135 mEq/L 135-145 N POTASSIUM (test code = K) 3.8 mEq/L 3.5-5.0 N CHLORIDE (test code = CL) 99 mEq/L 100-115 L CARBON DIOXIDE (test code = CO2) 27 mEq/L 22-31 N ANION GAP (test code = GAP) 13.10 10-20 N GLUCOSE (test code = GLU) 90 mg/dL 65-110 N BLOOD UREA NITROGEN (test code = 9 mg/dL 7-18 N BUN) GLOMERULAR FILTRATION RATE (test 92 ml/min >60 N code = GFR) CREATININE (test code = CREAT) 0.7 mg/dL 0.5-1.0 N CALCIUM (test code = CA) 8.3 mg/dL 8.4-10.2 L UR HCG [id number] 16:30:00 Test Item Value Reference Range Interpretation Comments UR HCG QUAL (test NEGATIVE 1. Very di lute urine code = HCGQLU) specimens, as indicated by a lowspecific g ravity, may not contain rep resentative levels ofhCG. 2 . False negative result s may occur when the levels of hCGare below the sensi tivity level of the test. If is still suspec jamila, a first morningurine sp ecimen should be colle cted 48 hours later and tested.
[2021-10-29 17:36] LABS: Absolute Lymphocytes (CBC) 1.3 K/uL (0.7-4.9); Hematocrit 37.7 % (36.0-45.0); Lymphocytes % 29.4 % (15.3-44.8); MPV 9.8 fL (7.6-11.3); RBC Red Blood Cell Count 3.81 M/uL (3.86-4.86)
[2021-10-29 17:41] LABS: Protime INR 1.02
[2021-10-29 17:55] LABS: Albumin 3.5 g/dL (3.4-5.0); Bilirubin Direct 0.6 mg/dL (0-0.2); Bilirubin Total 0.7 mg/dL (0.2-1.0); Magnesium 2.3 mg/dL (1.8-2.4); Potassium 3.6 mmol/L (3.5-5.1); Protein, Total 8.5 g/dL (6.4-8.2)
[2021-10-29] MEDS ORDERED: FENTANYL CITR 100 MCG/2 ML ONE ×2 (18:08→19:35)
[2021-10-29] MEDS ORDERED: ASPIRIN 81 MG CHEWABLE TABLET ONE (18:08)
[2021-10-29] MEDS ORDERED: ONDANSETRON 4 MG/2 ML VIAL ONE (18:08)
--- NOTE | 2021-10-29 18:48 | RAD REPORT ---
EXAM DESCRIPTION: RAD - Chest Single View - 10/29/2021 6:25 pm CLINICAL HISTORY: CHEST PAIN COMPARISON: Two view chest 08/27/2015 TECHNIQUE: AP portable chest image was obtained 10/29/2021 6:25 pm . FINDINGS: Lung volumes are low accentuating the interstitial pattern. Mild edema or infiltrate could be masked. No focal consolidation or mass lesions seen. Hilar regions within range of normal. Heart and vasculature are normal. No measurable pleural effusion and no pneumothorax. No acute bony abnorma lity seen. No acute aortic findings suspected. IMPRESSION: Limited portable study showing no acute lung parenchymal process. Interstitial markings are accentuated by shallow inspiration, portable technique and body habitus. Mi ld edema or infiltrate could be masked.
--- NOTE | 2021-10-29 19:13 | ER ---
Nurse's Notes [facility] Name: Yvette Nieto Age: 41 yrs Sex: Female : 1980 Arrival Date: 10/29/2021 Time: 16:46 Bed 9 Private MD: Diagnosis: Chest pain, unspecified Presentation: 10/29 17:10 Chief complaint: Patient states: left sided chest pain X 4-5 hours, was seen at Dr. jerson Wise a couple weeks ago and had EKG and was told it was fine. Coronavirus screen: At this time, the client does not indicate any symptoms associated with coronavirus-19. Ebola Screen: Patient negative for fever greater than or equal to 101.5 degrees Fahrenheit, and additional compatible Ebola Virus Disease symptoms Patient denies exposure to infectious person. Patient denies travel to an Ebola-affected area in the 21 days before illness onset. No symptoms or risks identified at this time. Initial Sepsis Screen: Does the patient meet any 2 criteria? No. Patient's initial sepsis screen is negative. Does the patient have a suspected source of infection? No. Patient's initial sepsis screen is negative. Risk Assessment: Do you want to hurt yourself or someone else? Patient reports no desire to harm self or others. Onset of symptoms was October 29, 2021. 17:10 Method Of Arrival: Wheelchair iw 17:10 Acuity: SANDIE 3 iw Historical: - Allergies: 17:12 Morphine (Itching); iw - PMHx: 17:12 Hypertension; Inflammatory Asthma; PCOS; Rheumatoid Arthritis; Tachycardia; iw Assessment: 19:51 Reassessment: Patient is alert, oriented x 3, equal unlabored respirations, skin bb warm/dry/pink. pt seen by this RN at discharge pt verbalized understanding of and agrees to plan of care discharge instructions given pt assisted to exit via wheelchair by phlebotomy services technician accompanied by family Patient states feeling better. Vital Signs: 17:10 BP 138 / 79; Pulse 96; Resp 18 S; Temp 97.0; Pulse Ox 99% on R/A; Weight 149.69 kg; iw Height 5 ft. 8 in. (172.72 cm); Pain 7/10; 19:52 BP 108 / 49; Pulse 88; Resp 16 S; Temp 98.5(O); Pulse Ox 98% on R/A; Pain 0/10; bb 17:10 Body Mass Index 50.18 (149.69 kg, 172.72 cm) ED Course: 16:46 Patient arrived in ED. am2 17:12 Triage completed. iw 17:12 Arm band placed on. iw 17:13 Ivan Mendez NP is PHCP. pm1 17:13 Amira Chang MD is Attending Physician. pm1 17:31 Basic Metabolic Panel Sent. 5 17:31 CBC with Diff Sent. 5 17:31 LFT's Sent. 5 17:31 Magnesium Sent. 5 17:31 NT PRO-BNP Sent. 5 17:31 PT-INR Sent. 5 17:31 Troponin HS Sent. 5 17:31 Initial lab(s) drawn, by me, sent to lab. EKG done, by ED staff, reviewed by Amira Chang MD. Inserted saline lock: 20 gauge in right antecubital area, using aseptic technique. Blood collected. 17:32 Patient has correct armband on for positive identification. Placed in gown. Bed in low mh5 position. Call light in reach. Side rails up X2. Adult w/ patient. Warm blanket given. Pillow given. juvenile correctional officer on. Pulse ox on. NIBP on. 18:27 XRAY Chest (1 view) In Process Unspecified. EDMS 19:52 No provider procedures requiring assistance completed. IV discontinued, intact, bb bleeding controlled, No redness/swelling at site. Pressure dressing applied. Administered Medications: 18:05 Drug: Aspirin Chewable Tablet 324 mg Route: PO; iw 18:05 Drug: fentaNYL (PF) 50 mcg Route: IVP; Site: right antecubital; iw 18:05 Drug: Zofran (Ondansetron) 4 mg Route: IVP; Site: right antecubital; iw 19:38 Drug: fentaNYL (PF) 25 mcg {Note: RASS 0.} Route: IVP; Site: right antecubital; bb 19:51 Follow up: Response: No adverse reaction; Pain is decreased; RASS: Alert and Calm (0) bb Outcome: 19:12 Discharge ordered by . pm1 19:53 Discharged to home via wheelchair, with family. bb 19:53 Condition: stable 19:53 Discharge instructions given to patient, Instructed on discharge instructions, follow up and referral plans. Demonstrated understanding of instructions, follow-up care. 19:53 Patient left the ED. bb Signatures: Dispatcher [employer] Jeniffer Jones RN RN bb Demi Stoner RN RN iw Ivan Mendez, CHRI[employer]IAN [employer]LET[employer] TEACHER pm1 Yaneli Brown 5 Chely Escalante am2 Corrections: (The following items were deleted from the chart) 17:56 17:10 Pulse 96bpm; Resp 18bpm; Spontaneous; Pulse Ox 99% RA; Temp 97.0F; 149.69 kg; iw Height 5 ft. 8 in.; BMI: 50.1; Pain 7/10; iw
--- NOTE | 2021-10-29 19:13 | EDPHYS ---
Physician Documentation [facility] Name: Yvette Nieto Age: 41 yrs Sex: Female : 1980 Arrival Date: 10/29/2021 Time: 16:46 Bed 9 Private MD: ED Physician Amira Chang HPI: 10/29 17:18 This 41 yrs old Female presents to ER via Wheelchair with complaints of Chest pm1 Pressure. 17:18 The patient or guardian reports chest pain that is located primarily in the anterior pm1 aspect of left upper chest. Onset: 5 hours prior to arrival. The pain does not radiate. Associated signs and symptoms: Pertinent positives: shortness of breath, Pertinent negatives: cough, dizziness, headache. The chest pain is described as sharp. Duration: The patient or guardian reports a single episode, that is still ongoing. Modifying factors: The symptoms are alleviated by nothing. the symptoms are aggravated by deep breath, palpation of area. Severity of pain: in the emergency department the pain is actually worse. The patient has experienced similar episodes in the past, a few times. The patient has not recently seen a physician. Historical: - Allergies: 17:12 Morphine (Itching); iw - PMHx: 17:12 Hypertension; Inflammatory Asthma; PCOS; Rheumatoid Arthritis; Tachycardia; iw ROS: 17:18 Constitutional: Negative for fever, chills, and weight loss. pm1 17:18 Abdomen/GI: Negative for abdominal pain, nausea, vomiting, diarrhea, and constipation, Back: Negative for injury and pain, MS/Extremity: Negative for injury and deformity, Skin: Negative for injury, rash, and discoloration, Neuro: Negative for headache, weakness, numbness, tingling, and seizure. 17:18 Cardiovascular: Positive for chest pain, Negative for edema, palpitations. 17:18 Respiratory: Positive for shortness of breath, Negative for cough. 17:18 All other systems are negative. Exam: 17:18 Constitutional: This is a well developed, well nourished patient who is awake, alert, pm1 and in no acute distress. Head/Face: Normocephalic, atraumatic. 17:18 Cardiovascular: Regular rate and rhythm with a normal S1 and S2. No gallops, murmurs, or rubs. Normal PMI, no JVD. No pulse deficits. Respiratory: Lungs have equal breath sounds bilaterally, clear to auscultation and percussion. No rales, rhonchi or wheezes noted. No increased work of breathing, no retractions or nasal flaring. Abdomen/GI: Soft, non-tender, with normal bowel sounds. No distension or tympany. No guarding or rebound. No evidence of tenderness throughout. Back: No spinal tenderness. No costovertebral tenderness. Full range of motion. Skin: Warm, dry with normal turgor. Normal color with no rashes, no lesions, and no evidence of cellulitis. MS/ Extremity: Pulses equal, no cyanosis. Neurovascular intact. Full, normal range of motion. 17:18 Eyes: Exam is negative for acute changes, Periorbital structures: appear normal, Extraocular movements: no acute changes. 17:18 ENT: Exam is negative for acute changes, Mouth: no acute changes, Lips: normal, moist, Oral mucosa: normal, pink and intact, moist. 17:18 Chest/axilla: Palpation: no acute changes, tenderness, that is moderate, of the anterior aspect of left upper chest, that totally reproduces the patient's complaints. 17:18 Neuro: Exam negative for acute changes, Orientation: is normal, Mentation: is normal, Motor: is normal, moves all fours. Vital Signs: 17:10 BP 138 / 79; Pulse 96; Resp 18 S; Temp 97.0; Pulse Ox 99% on R/A; Weight 149.69 kg; iw Height 5 ft. 8 in. (172.72 cm); Pain 7/10; 19:52 BP 108 / 49; Pulse 88; Resp 16 S; Temp 98.5(O); Pulse Ox 98% on R/A; Pain 0/10; bb 17:10 Body Mass Index 50.18 (149.69 kg, 172.72 cm) iw MDM: 17:18 Patient medically screened. pm1 19:11 Data reviewed: vital signs. Data interpreted: Pulse oximetry: on room air is 99 %. pm1 Interpretation: normal. Counseling: I had a detailed discussion with the patient and/or guardian regarding: the historical points, exam findings, and any diagnostic results supporting the discharge/admit diagnosis, lab results, radiology results, the need for outpatient follow up, to return to the emergency department if symptoms worsen or persist or if there are any questions or concerns that arise at home. 10/29 17:18 Order name: Basic Metabolic Panel; Complete Time: 18:00 pm1 10/29 17:18 Order name: CBC with Diff; Complete Time: 17:45 pm1 10/29 17:18 Order name: LFT's; Complete Time: 18:00 pm1 10/29 17:18 Order name: Magnesium; Complete Time: 18:00 pm1 10/29 17:18 Order name: NT PRO-BNP; Complete Time: 18:00 pm1 10/29 17:18 Order name: PT-INR; Complete Time: 17:45 pm1 10/29 17:18 Order name: Troponin HS; Complete Time: 18:00 pm1 10/29 17:18 Order name: XRAY Chest (1 view); Complete Time: 18:56 pm1 10/29 17:18 Order name: EKG; Complete Time: 17:19 pm1 10/29 17:18 Order name: Cardiac monitoring; Complete Time: 17:31 pm1 10/29 17:18 Order name: EKG - Nurse/Tech; Complete Time: 17:31 pm1 10/29 17:18 Order name: IV Saline Lock; Complete Time: 17:31 pm1 10/29 17:18 Order name: Labs collected and sent; Complete Time: 17:31 pm1 10/29 17:18 Order name: O2 Per Protocol pm1 10/29 17:18 Order name: O2 Sat Monitoring pm1 Administered Medications: 18:05 Drug: Aspirin Chewable Tablet 324 mg Route: PO; iw 18:05 Drug: fentaNYL (PF) 50 mcg Route: IVP; Site: right antecubital; iw 18:05 Drug: Zofran (Ondansetron) 4 mg Route: IVP; Site: right antecubital; iw 19:38 Drug: fentaNYL (PF) 25 mcg {Note: RASS 0.} Route: IVP; Site: right antecubital; bb 19:51 Follow up: Response: No adverse reaction; Pain is decreased; RASS: Alert and Calm (0) bb Disposition Summary: 10/29/21 19:12 Discharge Ordered Location: Home pm1 Problem: new pm1 Symptoms: have improved pm1 Condition: Stable pm1 Diagnosis - Chest pain, unspecified pm1 Followup: pm1 - With: Emergency Department - When: As needed - Reason: Worsening of condition Followup: pm1 - With: Private Physician - When: 2 - 3 days - Reason: Recheck today's complaints, Continuance of care, Re-evaluation by your physician Discharge Instructions: - Discharge Summary Sheet pm1 - Nonspecific Chest Pain, Adult pm1 Forms: - Medication Reconciliation Form pm1 - Thank You Letter pm1 - Antibiotic Education pm1 - Prescription Opioid Use pm1 Addendum: 10/31/2021 18:39 Co-signature as Attending Physician, Amira luis a2 Signatures: Dispatcher [employer] EDJeniffer Candelaria RN RN Demi Austin RN RN iw Ivan Mendez, CONDUCTOR FREIGHT CONDUCTOR FREIGHT pm1 Amira Chang MD MD ma2
[2021-10-29 22:49] VITALS: BP 108/49; TEMP 98.5; O2SAT 98
--- NOTE | 2021-10-30 08:08 | EKG ---
Test Date: 2021-10-29 Test Time: 17:17:22 Machine Tool Technician Instructor: LAYNE MEASUREMENT RESULTS: Intervals: Rate: 87 NE: 138 QRSD: 84 QT: 406 QTc: 488 [place]: P: 60 NE: 138 QRS: -1 T: 9 INTERPRETIVE STATEMENTS: Normal sinus rhythm Prolonged QT Abnormal ECG Compared to ECG 02/11/2018 16:14:40 Prolonged QT interval now present Sinus tachycardia no longer present Electronically Signed On 10-30-21 08:06:56 CDT by Chandana Wise
== END 2021-10-29 19:53 | disposition home or self-care (01) ==
LOC: ER 16:45
DX: R07.9 Chest pain, unspecified (principal); R06.02 Shortness of breath; I10 Essential (primary) hypertension; Z88.5 Allergy status to narcotic agent
CPT/HCPCS: 93005; 85025; 80048; 36415; 83735; 85610; 80076; 84484; 83880; 71045; 96375; 96374; 99284; J3010 ×2; J2405

== ENCOUNTER → 2023-07-08 | Emergency (ER) | payer OTHER ==
[~2023-07-08] MED LIST: FOLIC ACID 5 MG/ML VIAL ONE; KCL 20 MEQ/100 mL IVPB 100 ML IV ONE; LORazepam 2 MG/ML VIAL ONE; MULTIVITAMINS 10 ML VIAL (INJ) IV ONE; Magnesium Sulfate 2gm IVPB 2 G/50 ML BAG IV ONE; NA CHLORIDE 0.9% 2,000 ML ONE; POTASSIUM 25 MEQ EFFERV TAB ONE; THIAMINE 200 MG/2 ML INJ ONE; chlordiazePOXIDE HCl 25 MG CAP ONE
--- NOTE | 2023-07-08 20:52 | RAD REPORT ---
EXAM DESCRIPTION: RAD - Chest Single View - 07/08/2023 8:46 pm CLINICAL HISTORY: COUGH Chest pain. COMPARISON: Chest Single View dated 10/29/2021; CHEST PA AND LAT 2 VIEW dated 08/27/2015 FINDINGS: Portable technique limits examination quality. The lungs are grossly clear. The heart is normal in size. No displaced fractures. IMPRESSION: No acute intrathoracic process suspected.
[2023-07-08 20:53] LABS: Absolute Lymphocytes (CBC) 1.6 K/uL (0.7-4.9); Lymphocytes % 53.5 % (15.3-44.8); MCV 93.1 fL (80-100); MPV 9.1 fL (7.6-11.3); Platelets 121 thou/uL (152-406); RBC Red Blood Cell Count 3.76 M/uL (3.86-4.86)
[2023-07-08 21:02] LABS: Protime INR 1.21
[2023-07-08 21:22] LABS: ALT/SGPT 33 U/L (13-56); AST/SGOT 56 U/L (15-37); Albumin 3.4 g/dL (3.4-5.0); Alkaline Phosphatase 158 U/L (45-117); BUN Blood Urea Nitrogen 4 mg/dL (7-18); Bicarbonate 28 mEq/L (21-32); Bilirubin Direct 0.5 mg/dL (0-0.2); Bilirubin Indirect, Calculated 0.4 mg/dL (0.2-0.8); Bilirubin Total 0.9 mg/dL (0.2-1.0); Glomerular Filtration Rate 87 ml/min (=/>90); Glucose Level 116 mg/dL (74-106); Lipase 23 U/L (13-75); Magnesium 1.7 mg/dL (1.6-2.4); NT PRO-BNP 71 pg/mL (<125); Potassium 3.1 mEq/L (3.5-5.1); Protein, Total 8.5 g/dL (6.4-8.2); Sodium Level 136 mEq/L (136-145); Troponin High Sensitivity 19.1 pg/mL (<58.9)
[2023-07-08 22:02] LABS: Blood Morphology Comment NOT SEEN (NOT SEEN); Platelet Estimate ADEQ
--- NOTE | 2023-07-08 22:41 | ER ---
Nurse's Notes [facility] Name: Yvette Nieto Age: 43 yrs Sex: Female : 1980 Arrival Date: 07/08/2023 Time: 19:56 Bed 8 Private MD: Diagnosis: Alcohol abuse;Alcohol dependence with withdrawal, uncomplicated;Alcohol dependence;Hypokalemia;Alcohol abuse with intoxication Presentation: 07/08 20:00 Chief complaint: EMS states: recovering alcoholic, undergoing Outpatient rv detoxification, went through some stressors today, drank alcohol and now having some withdrawal symptoms. vomited x2 earlier. denies nausea now. tingling sensation on feet. denies hallucinations. no tremors. Coronavirus screen: At this time, the client does not indicate any symptoms associated with coronavirus-19. Ebola Screen: No symptoms or risks identified at this time. Initial Sepsis Screen: Does the patient meet any 2 criteria? No. Patient's initial sepsis screen is negative. Does the patient have a suspected source of infection? No. Patient's initial sepsis screen is negative. Risk Assessment: Do you want to hurt yourself or someone else? Patient reports no desire to harm self or others. Onset of symptoms was July 08, 2023. 20:00 Method Of Arrival: EMS: [facility] rv 20:00 Acuity: SANDIE 3 rv Triage Assessment: 20:03 General: Appears in no apparent distress. comfortable, Behavior is calm, cooperative. rv Pain: Complains of pain in head. Neuro: Level of Consciousness is awake, alert, obeys commands, Oriented to person, place, time, situation. Cardiovascular: Capillary refill < 3 seconds Patient's skin is warm and dry. Respiratory: Airway is patent Respiratory effort is even, unlabored. GI: No signs and/or symptoms were reported involving the gastrointestinal system. : No signs and/or symptoms were reported regarding the genitourinary system. Derm: Skin is intact. Historical: - Allergies: 20:03 Morphine (Itching); rv - PMHx: 20:03 Hypertension; Inflammatory Asthma; PCOS; Rheumatoid Arthritis; Tachycardia; rv - Immunization history:: Adult Immunizations unknown. - Social history:: Smoking status: Patient denies any tobacco usage or history of. Patient uses alcohol. - Family history:: not pertinent. Screenin:04 Clinical [place] Withdrawal Assessment for Alcohol, revised (CIWA-Ar): rv Nausea/Vomitin - No nausea or vomiting Headache: 3 - Moderate Paroxysmal Sweats: 0 - No sweats visible Anxiety: 0 - No anxiety, at ease Agitation: 0 - Normal actiivty Tremor: 0 - No tremor Auditory Disturbances: 0 - Not present Visual Disturbances: 0 - Not present Tactile Disturbances: 1 - Very mild paresthesias Orientation and Clouding of Sensorium: 0 - Oriented and can do serial additions Total Score: < 10 Very mild withdrawal. 20:04 [facility] ED Fall Risk Assessment (Adult) History of falling in the last 3 months, rv including since admission No falls in past 3 months (0 pts) Score/Fall Risk Level 0 - 2 = Low Risk Oriented to surroundings, Maintained a safe environment, Educated pt \T\ family on fall prevention, incl call for assistance when getting out of bed, Assessed \T\ reinforced patient's understanding of fall precautions. Abuse screen: Denies threats or abuse. Denies injuries from another. Nutritional screening: No deficits noted. Tuberculosis screening: No symptoms or risk factors identified. Assessment: 20:55 Reassessment: Patient and/or family updated on plan of care and expected duration. Pain ha1 level reassessed. Patient is alert, oriented x 3, equal unlabored respirations, skin warm/dry/pink. 21:50 Reassessment: Patient and/or family updated on plan of care and expected duration. Pain ha1 level reassessed. Patient is alert, oriented x 3, equal unlabored respirations, skin warm/dry/pink. 22:50 Reassessment: Patient and/or family updated on plan of care and expected duration. Pain ha1 level reassessed. Patient is alert, oriented x 3, equal unlabored respirations, skin warm/dry/pink. 23:30 Reassessment: Patient and/or family updated on plan of care and expected duration. Pain ha1 level reassessed. Patient is alert, oriented x 3, equal unlabored respirations, skin warm/dry/pink. discharge pending mediation administration. Vital Signs: 20:00 BP 140 / 91; Pulse 112; Resp 19; Temp 98; Pulse Ox 99% on R/A; rv 20:55 BP 134 / 78; Pulse 109; Resp 18 S; Pulse Ox 100% on R/A; ha1 21:50 BP 126 / 82; Pulse 106; Resp 18 S; Pulse Ox 98% on R/A; ha1 22:30 BP 99 / 71; Pulse 105; Resp 17 S; Pulse Ox 98% on R/A; ha1 23:30 BP 103 / 72; Pulse 101; Resp 17 S; Pulse Ox 97% on R/A; ha1 ED Course: 20:00 Patient arrived in ED. rv 20:03 Triage completed. rv 20:03 Arm band placed on right wrist. rv 20:04 Patient has correct armband on for positive identification. Client placed on continuous rv cardiac and pulse oximetry monitoring. NIBP monitoring applied. alarm security or surveillance monitor on. 20:04 No provider procedures requiring assistance completed. rv 20:13 Donnie Betancur MD is Attending Physician. jorge 20:20 Inserted saline lock: 20 gauge in right antecubital area, using aseptic technique. wm Blood collected. 20:35 Avinash Rae, MIKE is Primary Nurse. rv 20:45 EKG done, by ED staff, reviewed by Donnie Betancur MD. wm 20:46 Client placed on continuous cardiac and pulse oximetry monitoring. NIBP monitoring wm applied. alarm security or surveillance monitor on. 20:47 XRAY Chest (1 view) In Process Unspecified. EDMS 22:41 Ramses Mancia MD is Referral Physician. [facility] 07/09 00:17 IV discontinued, intact, bleeding controlled, No redness/swelling at site. Pressure rv dressing applied. Administered Medications: 07/08 20:35 Drug: Banana Bag - (Multivitamin IV 1 amp, NS 0.9% IV 1000 ml, Thiamine IV 100 mg, rv foLIC Acid IVPB 1 mg) IV at 150 ml/hr once Route: IV; Rate: 150 ml/hr; Site: right antecubital; 07/09 00:16 Follow up: IV Status: Order to discontinue infusion; IV Intake: 300ml rv 07/08 20:36 Drug: NS 0.9% IV 1000 ml IV at 1 bolus Per protocol; 1000 mL bolus Route: IV; Rate: 1 rv bolus; Site: right antecubital; 23:19 Follow up: IV Status: Completed infusion; IV Intake: 1000ml rv 20:36 Drug: Thiamine IV 100 mg IV at bolus once Route: IV; Rate: bolus; Site: right rv antecubital; 23:18 Follow up: IV Status: Completed infusion rv 20:51 Drug: chlordiazePOXIDE PO 50 mg PO once Route: PO; rv 23:18 Follow up: Response: No adverse reaction rv 20:51 Drug: Ativan IVP 1 mg IVP once Route: IVP; Site: right antecubital; rv 23:18 Follow up: Response: No adverse reaction rv 22:02 Drug: Potassium Chloride IV 20 mEq IV at per protocol once; administer over 1-2 hours rv Route: IV; Rate: per protocol; Site: right antecubital; 23:18 Follow up: IV Status: Completed infusion; IV Intake: 100ml rv 22:02 Drug: Potassium PO Effervescent Tablet 50 mEq PO once; dissolve in 4 ounces of water or rv juice Route: PO; 23:18 Follow up: Response: No adverse reaction rv 23:11 Drug: Magnesium Sulfate IVPB 2 grams IVPB once over 1 hrs Route: IVPB; Infused Over: 1 rv hrs; Site: right antecubital; 07/09 00:04 Follow up: Response: No adverse reaction; IV Status: Completed infusion ha1 07/08 23:50 Not Given (not appropriate at this timee): ondansetron 4 mg IVP once; over 2 minutes rv Medication: 20:05 VIS not applicable for this client. rv Intake: 23:18 IV: 100ml; Total: 100ml. rv 23:19 IV: 1000ml; Total: 1100ml. rv 07/09 00:16 IV: 300ml; Total: 1400ml. rv Outcome: 07/08 22:41 Discharge ordered by . jorge 07/09 00:03 Discharged to home ambulatory, with family, ha Condition: stable 00:17 Discharge instructions given to patient, family, Instructed on discharge instructions, rv follow up and referral plans. medication usage, Demonstrated understanding of instructions, follow-up care, medications, Prescriptions given X 3, 00:17 Patient left the ED. rv Signatures: Dispatcher [employer] EDDonnie Ricks MD MD cha Vicente, Ronaldo, RN RN rv Milly Woods Heidy, RN RN ha1
--- NOTE | 2023-07-08 22:41 | EDPHYS ---
Physician Documentation [facility] Name: Yvette Nieto Age: 43 yrs Sex: Female : 1980 Arrival Date: 07/08/2023 Time: 19:56 Bed 8 Private MD: ED Physician Donnie Betancur HPI: 07/08 20:42 This 43 yrs old Female presents to ER via EMS with complaints of etoh jorge withdrawal, hx of recent rehab. 20:42 Context: Method: the patient has a confirmed or suspected ingestion, of alcohol. jorge Associated signs and symptoms: Pertinent positives: nausea, vomiting. Severity of symptoms: At their worst the symptoms were mild moderate in the emergency department the symptoms are unchanged. The patient presents to the emergency department with anxiety, a history of substance abuse, Type: alcohol. Past psychiatric history: Prior diagnosis: addiction history, alcohol, Psychiatric medications include: none. The patient has experienced similar episodes in the past, multiple times. Historical: - Allergies: 20:03 Morphine (Itching); rv - PMHx: 20:03 Hypertension; Inflammatory Asthma; PCOS; Rheumatoid Arthritis; Tachycardia; rv - Immunization history:: Adult Immunizations unknown. - Social history:: Smoking status: Patient denies any tobacco usage or history of. Patient uses alcohol. - Family history:: not pertinent. ROS: 20:42 Constitutional: Negative for fever, chills, and weight loss, Eyes: Negative for injury, jorge pain, redness, and discharge, ENT: Negative for injury, pain, and discharge, Neck: Negative for injury, pain, and swelling, Respiratory: Negative for shortness of breath, cough, wheezing, and pleuritic chest pain, Abdomen/GI: Negative for abdominal pain, nausea, vomiting, diarrhea, and constipation, Back: Negative for injury and pain, : Negative for injury, bleeding, discharge, and swelling, MS/Extremity: Negative for injury and deformity, Skin: Negative for injury, rash, and discoloration, Neuro: Negative for headache, weakness, numbness, tingling, and seizure, Psych: Negative for depression, anxiety, suicide ideation, homicidal ideation, and hallucinations, Allergy/Immunology: Negative for hives, rash, and allergies, Endocrine: Negative for neck swelling, polydipsia, polyuria, polyphagia, and marked weight changes, Hematologic/Lymphatic: Negative for swollen nodes, abnormal bleeding, and unusual bruising, 20:42 Cardiovascular: Positive for palpitations, 20:42 Abdomen/GI: Positive for nausea and vomiting, Exam: 20:42 Constitutional: This is a well developed, well nourished patient who is awake, alert, jorge and in no acute distress. Head/Face: Normocephalic, atraumatic. Eyes: Pupils equal round and reactive to light, extra-ocular motions intact. Lids and lashes normal. Conjunctiva and sclera are non-icteric and not injected. Cornea within normal limits. Periorbital areas with no swelling, redness, or edema. ENT: Nares patent. No nasal discharge, no septal abnormalities noted. Tympanic membranes are normal and external auditory canals are clear. Oropharynx with no redness, swelling, or masses, exudates, or evidence of obstruction, uvula midline. Mucous membranes moist. Neck: Trachea midline, no thyromegaly or masses palpated, and no cervical lymphadenopathy. Supple, full range of motion without nuchal rigidity, or vertebral point tenderness. No Meningismus. Chest/axilla: Normal chest wall appearance and motion. Nontender with no deformity. No lesions are appreciated. Cardiovascular: Regular rate and rhythm with a normal S1 and S2. No gallops, murmurs, or rubs. Normal PMI, no JVD. No pulse deficits. Respiratory: Lungs have equal breath sounds bilaterally, clear to auscultation and percussion. No rales, rhonchi or wheezes noted. No increased work of breathing, no retractions or nasal flaring. Abdomen/GI: Soft, non-tender, with normal bowel sounds. No distension or tympany. No guarding or rebound. No evidence of tenderness throughout. Back: No spinal tenderness. No costovertebral tenderness. Full range of motion. Skin: Warm, dry with normal turgor. Normal color with no rashes, no lesions, and no evidence of cellulitis. MS/ Extremity: Pulses equal, no cyanosis. Neurovascular intact. Full, normal range of motion. Neuro: Awake and alert, GCS 15, oriented to person, place, time, and situation. Cranial nerves II-XII grossly intact. Motor strength 5/5 in all extremities. Sensory grossly intact. Cerebellar exam normal. Normal gait. Psych: Awake, alert, with orientation to person, place and time. Behavior, mood, and affect are within normal limits. 20:42 ECG was reviewed by the Attending Physician. Vital Signs: 20:00 BP 140 / 91; Pulse 112; Resp 19; Temp 98; Pulse Ox 99% on R/A; rv 20:55 BP 134 / 78; Pulse 109; Resp 18 S; Pulse Ox 100% on R/A; ha1 21:50 BP 126 / 82; Pulse 106; Resp 18 S; Pulse Ox 98% on R/A; ha1 22:30 BP 99 / 71; Pulse 105; Resp 17 S; Pulse Ox 98% on R/A; ha1 23:30 BP 103 / 72; Pulse 101; Resp 17 S; Pulse Ox 97% on R/A; ha1 MDM: 20:13 Patient medically screened. jorge 20:45 Differential diagnosis: polypharmacy, over medication, hypoglycemia, drug withdrawal. jorge depression, psychosis secondary to non-compliance. Data reviewed: vital signs, nurses notes, lab test result(s), EKG, radiologic studies, plain films. Consideration of Admission/Observation Escalation of care including admission/observation considered. I considered the following discharge prescriptions or medication management in the emergency department Medications were administered in the Emergency Department. See MAR. Independent interpretation of the following test(s) in the Emergency Department EKG: See my EKG interpretation above. Test considered but Not performed: CT: no ct head. Historians other than the Patient: patient well informed. Care significantly affected by the following chronic conditions: Hypertension, tachy, pcos, asthma, ra. Counseling: I had a detailed discussion with the patient and/or guardian regarding the historical points, exam findings, and any diagnostic results supporting the discharge/admit diagnosis, lab results, radiology results, the need for outpatient follow up, for definitive care, a family practitioner, a psychiatrist. 07/08 20:19 Order name: Basic Metabolic Panel; Complete Time: 21:47 jorge 07/08 20:19 Order name: CBC with Diff; Complete Time: 22:40 jorge 07/08 20:19 Order name: LFT's; Complete Time: 21:47 jorge 07/08 20:19 Order name: Magnesium; Complete Time: 21:47 jorge 07/08 20:19 Order name: NT PRO-BNP; Complete Time: 21:47 [facility] 07/08 20:19 Order name: PT-INR; Complete Time: 21:47 [facility] 07/08 20:19 Order name: Troponin HS; Complete Time: 21:47 [facility] 07/08 20:19 Order name: Lipase; Complete Time: 21:47 [facility] 07/08 20:19 Order name: Acetaminophen; Complete Time: 21:47 [facility] 07/08 20:19 Order name: ETOH Level; Complete Time: 21:47 [facility] 07/08 20:19 Order name: Ptt, Activated; Complete Time: 21:47 [facility] 07/08 20:19 Order name: Salicylate; Complete Time: 21:47 [facility] 07/08 21:03 Order name: Manual Differential; Complete Time: 22:40 EDMS 07/08 20:19 Order name: XRAY Chest (1 view); Complete Time: 21:47 [facility] 07/08 20:19 Order name: EKG; Complete Time: 20:20 [facility] 07/08 20:19 Order name: Cardiac monitoring; Complete Time: 20:23 [facility] 07/08 20:19 Order name: EKG - Nurse/Tech; Complete Time: 20:23 [facility] 07/08 20:19 Order name: IV Saline Lock; Complete Time: 20:23 [facility] 07/08 20:19 Order name: Labs collected and sent; Complete Time: 20:23 [facility] 07/08 20:19 Order name: O2 Per Protocol; Complete Time: 20:23 [facility] 07/08 20:19 Order name: O2 Sat Monitoring; Complete Time: 20:23 [facility] 07/08 20:19 Order name: Suicide Screening ([place]); Complete Time: 20:23 [facility] EC:42 Rate is 108 beats/min. Rhythm is regular. QRS [place] is Normal. NE interval is normal. [facility] QRS interval is normal. QT interval is normal. No Q waves. T waves are Normal. No ST changes noted. Clinical impression: NSR w/ Non-specific ST/T Changes and No evidence of ischemia. Interpreted by me. Reviewed by me. Administered Medications: 20:35 Drug: Banana Bag - (Multivitamin IV 1 amp, NS 0.9% IV 1000 ml, Thiamine IV 100 mg, rv foLIC Acid IVPB 1 mg) IV at 150 ml/hr once Route: IV; Rate: 150 ml/hr; Site: right antecubital; 07/09 00:16 Follow up: IV Status: Order to discontinue infusion; IV Intake: 300ml rv 07/08 20:36 Drug: NS 0.9% IV 1000 ml IV at 1 bolus Per protocol; 1000 mL bolus Route: IV; Rate: 1 rv bolus; Site: right antecubital; 23:19 Follow up: IV Status: Completed infusion; IV Intake: 1000ml rv 20:36 Drug: Thiamine IV 100 mg IV at bolus once Route: IV; Rate: bolus; Site: right rv antecubital; 23:18 Follow up: IV Status: Completed infusion rv 20:51 Drug: chlordiazePOXIDE PO 50 mg PO once Route: PO; rv 23:18 Follow up: Response: No adverse reaction rv 20:51 Drug: Ativan IVP 1 mg IVP once Route: IVP; Site: right antecubital; rv 23:18 Follow up: Response: No adverse reaction rv 22:02 Drug: Potassium Chloride IV 20 mEq IV at per protocol once; administer over 1-2 hours rv Route: IV; Rate: per protocol; Site: right antecubital; 23:18 Follow up: IV Status: Completed infusion; IV Intake: 100ml rv 22:02 Drug: Potassium PO Effervescent Tablet 50 mEq PO once; dissolve in 4 ounces of water or rv juice Route: PO; 23:18 Follow up: Response: No adverse reaction rv 23:11 Drug: Magnesium Sulfate IVPB 2 grams IVPB once over 1 hrs Route: IVPB; Infused Over: 1 rv hrs; Site: right antecubital; 07/09 00:04 Follow up: Response: No adverse reaction; IV Status: Completed infusion ha1 07/08 23:50 Not Given (not appropriate at this timee): ondansetron 4 mg IVP once; over 2 minutes rv Disposition Summary: 07/08/23 22:41 Discharge Ordered Notes: Location: Home jorge Problem: new jorge Symptoms: have improved jorge Condition: Stable jorge Diagnosis - Alcohol abuse jorge - Alcohol dependence with withdrawal, uncomplicated jorge - Alcohol dependence jorge - Hypokalemia jorge - Alcohol abuse with intoxication jorge Followup: jorge - With: Private Physician - When: 2 - 3 days - Reason: Recheck today's complaints, Continuance of care, Re-evaluation by your physician Followup: jorge - With: Ramses Manica MD - When: 2 - 3 days - Reason: Recheck today's complaints, Re-evaluation by your physician Discharge Instructions: - Discharge Summary Sheet jorge - Finding Treatment for Addiction jorge - Alcohol Withdrawal Syndrome jorge - Alcohol Use Disorder jorge - Potassium Content of Foods jorge - Alcohol Withdrawal Syndrome, [id number] jorge - Hypokalemia jorge - Alcohol Abuse and Dependence Information, Adult [facility] Forms: - Medication Reconciliation Form [facility] - Thank You Letter jorge - Antibiotic Education jorge - Prescription Opioid Use jorge - Patient Portal Instructions [facility] - Leadership Thank You Letter [facility] Prescriptions: - - take 1 tablet ORAL route once daily; 30 tablet; Refills: 0, Product Selection [facility] Permitted - chlordiazepoxide HCl 25 mg Oral capsule - take 3 capsule ORAL route every 6 hours as needed for agitation; until symptoms jorge of withdrawal controlled or stopped; 30 capsule; Refills: 0, Product Selection Permitted - ondansetron 4 mg Oral Tablet,disintegrating - take 1 tablet ORAL route every 6 hours for 5 days; 20 tablet; Refills: 0, [facility] Product Selection Permitted Signatures: Dispatcher [employer] Donnie Moseley MD MD cha Vicente, Ronaldo RN Jazmin Woodward RN ha1
[2023-07-09 05:53] VITALS: TEMP 98
[2023-07-09 06:06] VITALS: BP 103/72; O2SAT 97
--- NOTE | 2023-07-09 13:20 | EKG ---
Test Date: 2023-07-08 Test Time: 20:38:19 [place] Representative: VERONICA MEASUREMENT RESULTS: Intervals: Rate: 108 SC: 156 QRSD: 86 QT: 388 QTc: 519 [place]: P: 86 SC: 156 QRS: 14 T: 46 INTERPRETIVE STATEMENTS: Sinus tachycardia Otherwise normal ECG Compared to ECG 10/29/2021 17:17:22 Sinus rhythm no longer present Prolonged QT interval no longer present Electronically Signed On 07-09-23 13:18:22 THREAD ROLLER by Mikey Britt
== END ==
LOC: ER 19:56
DX: F10.239 Alcohol dependence with withdrawal, unspecified (principal); F10.229 Alcohol dependence with intoxication, unspecified; E87.6 Hypokalemia; I10 Essential (primary) hypertension; Z88.5 Allergy status to narcotic agent
CPT/HCPCS: 96365; 96367; 93005; 85025; 80048; 36415; 83735; 85610; 80076; 85730; 84484; 83690; 83880; 71045; 96375; 99285; 80143; 80179; 82077; J3411; J3480; J3475; J7030